=== PATIENT | female | born 1945 | race Caucasian/White ===

== ENCOUNTER 2024-02-21 11:37 | Emergency (ER) | payer MEDICARE, SELFPAY ==
--- NOTE | ~2024-02-21 | XR_ITS ---
XR chest 2V Ordering provider: Melvin Eduardo III DO History: 78 years Female with . IRREGULAR HEART BEAT . Comparison: None. FINDINGS: MEDIASTINUM: The cardiac silhouette is not enlarged. LUNGS: Nodule in the right upper lobe area measuring 1.3 cm. Further evaluation with CT is advised. N o infiltrates, effusions or pneumothorax. Prominent markings bilaterally in the lower lobes. OTHER: No free air under the diaphragm. IMPRESSION: Prominent markings in the lower lobes with no definite lobar pneumonia. early pneumonia cannot be exc luded. Nodule in the right upper lobe measuring 1.[address] evaluation is advised. Reviewed, dictated and finalized at location A. IMPRESSION: Prominent markings in the lower lobes with no definite lobar pneumonia. early p neumonia cannot be excluded. Nodule in the right upper lobe measuring 1.[address] evaluation is advised.
[2024-02-21 11:43] VITALS: BP 159/74; PULSE 100; RESP 18; TEMP 36.3; O2SAT 95
--- NOTE | 2024-02-21 11:46 | ECG_ITS ---
Test Date: 2024-02-21 11:55:11 Measurements Intervals [place] Rate: 92 P: 0 UT: 0 QRS: 3 QRSD: 95 T: 0 QT: 234 QTc: 290 Interpretive Statements ATRIAL FIBRILLATION NONSPECIFIC ST & T-WAVE ABNORMALITY ABNORMAL RHYTHM ECG No previous ECG available for comparison Electronically Signed On 02-21-2024 12:20:09 CDT by Renetta Trejo M.D.
[2024-02-21 11:50] VITALS: PULSE 107; O2SAT 90
[2024-02-21 12:00] VITALS: PULSE 94; RESP 15
--- NOTE | 2024-02-21 12:10 | PC.NURSE ---
pt denies any chest pain, discomfort, heart fluttering or racing sensation, patient states that occasionally she will have some nasal congestion with shortness of breath that she blames on allergies. patient denies any acid reflux or nausea and just complains that her energy is very low like next to zero lately pt states that throughout the last few years energy decreased gradually
[2024-02-21 12:18] LABS: Basophils Percent Auto 0.3 % (0.2-1.2); Eosinophils Absolute Auto 0.1 K/mm3 (0-0.3); Eosinophils Percent Auto 1.1 % (0-4.4); Hemoglobin 13.5 g/dL (12.0-15.0); Immature Granulocyte Absolute 0.01 K/mm3 (0.00-0.031); Immature Granulocyte Percent A 0.1 % (0-0.5); Lymphocytes Absolute Auto 2.19 K/mm3 (0.9-3.2); Lymphocytes Percent Auto 29.6 % (18.3-44.2); Mean Corpuscular HGB Conc 32.9 g/dl (32-36); Mean Corpuscular Hemoglobin 31.3 pg (26-34); Mean Corpuscular Volume 94.9 fl (80-100); Mean Platelet Volume 10.2 fl (7.4-10.4); Monocytes Absolute Auto 0.6 K/mm3 (0.1-0.6); Monocytes Percent Auto 8.1 % (2.6-8.5); Neutrophils Absolute Auto 4.5 K/mm3 (1.3-6.7); Neutrophils Percent Auto 60.8 % (45.5-73.1); Platelet Count Result 166 k/mm3 (150-375); Red Blood Count 4.32 M/mm3 (4.2-5.4); Red Cell Distribution Width 13.5 % (11.5-14.5); White Blood Count 7.4 K/mm3 (4.5-10.0)
[2024-02-21 12:25] VITALS: PULSE 97; RESP 15; O2SAT 96
--- NOTE | 2024-02-21 12:29 | ED.ARRPALP ---
HPI - Arrhythmia/Palpitations General Chief Complaint: Arrhythmia/Palpitations Stated Complaint: irregular heartbeat Time Seen by Provider: 02/21/24 11:57 History of Present Illness HPI narrative: 78-year-old female present to the emergency department for evaluation after being found to be in AFib without RVR. Patient states she has had increasing generalized weakness over the course of the last few months. patient denies any associated chest pain or current shortness breath although patient does states she does have some exertional shortness of breath worsening over the last few months. Patient was at her eye appointment today when she was complaining of heart palpitations, EKG was performed patient was found to be in AFib. Patient arrived to the emergency department by EMS. Upon arrival to the ED patient denies any complaints other than feeling fatigued. Patient is in AFib with a heart rate of 100. Patient denies any prior history of AFib denies a prior history of [place]. Related Data Allergies Allergy/AdvReac Type Severity Reaction Status Date / Time Penicillins Allergy Unknown Rash Verified 10/18/17 06:38 Review of Systems Review of Systems: All systems reviewed & are unremarkable except as noted in HPI and below Exam Narrative: APPEARANCE: Well appearing, no pain, no distress, well-nourished. HEAD: normocephalic, atraumatic. EYES: PERRLA/EOMI, conjunctivae clear. NOSE: Normal no drainage EARS:TMS clear with good light reflex. THROAT: Pharynx clear, no exudate. NECK: Supple. No adenopathy, no masses. RESPIRATORY: Airway patent, respirations nonlabored. Clear to auscultation bilaterally, no rales, rhonchi, wheezing. CARDIOVASCULAR: irregular heartbeat, rate controlled AFib ABDOMINAL: Soft, nontender, nondistended, normal bowel sounds MUSCULOSKELETAL: Moves all extremities. Strength/ROM intact, No edema, No calf tenderness. NEURO: Alert. Cranial nerves II through XII intact. grossly intact SKIN: Warm, dry. Normal Color Course Vital Signs Vital signs: Vital Signs Temperature 97.3 F L 02/21/24 11:43 Pulse Rate 100 02/21/24 11:43 Respiratory Rate 18 02/21/24 11:43 Blood Pressure 159/74 H 02/21/24 11:43 Pulse Oximetry 95 02/21/24 11:43 Oxygen Delivery Room Air 02/21/24 11:43 Temperature 97.6 F 02/21/24 13:50 Pulse Rate 98 02/21/24 13:50 Respiratory Rate 12 02/21/24 13:50 Blood Pressure 161/72 H 02/21/24 13:50 Pulse Oximetry 96 02/21/24 13:50 Oxygen Delivery Room Air 02/21/24 11:43 MDM - Arrhythmia/Palpitations MDM Narrative Medical decision making narrative: 78-year-old female present to the ED for evaluation for rate control atrial fibrillation. Patient is afebrile with no leukocytosis and a stable hemoglobin. Patient has no acute abnormalities on her CMP. patient does have an EKG showing heart rate in the 90s. Patient's heart rate is intermittently going up to 120s while at rest in bed. Case was discussed with both cardiology and hospitalist sleep the patient could be treated as outpatient. Cardiology was the patient is started on Eliquis and metoprolol 25 mg b.i.d.. They will see the patient as outpatient. patient's Eliquis script was called to the pharmacy and changed to 5 mg b.i.d.. Differential Diagnosis Differential diagnosis: Likely palpitations, anxiety, sinus tachycardia, artial fibrillation, artial flutter, ventricular premature beats, supraventricular tachycardia, ventricular tachycardia and WPW Lab Data Attestation: I reviewed the patient's lab results. 02/21/24 12:07 02/21/24 12:07 Labs: Lab Results 02/21/24 02/21/24 Range/Units 12:07 12:47 WBC 7.4 (4.5-10.0) K/mm3 RBC 4.32 (4.2-5.4) M/mm3 Hgb 13.5 (12.0-15.0) g/dL Hct 41.0 (37.0-47.0) % MCV 94.9 (80-100) fl MCH 31.3 (26-34) pg MCHC 32.9 (32-36) g/dl RDW 13.5 (11.5-14.5) % Plt Count 166 (150-375) k/mm3 MPV 10.2 (
[2024-02-21 12:31] LABS: Alanine Aminotransferase 17 U/L (6-35); Albumin Level 4.2 g/dL (3.5-5.1); Alkaline Phosphatase 84 U/L (38-126); Anion Gap 5 mmol/L (4-12); Aspartate Amino Transferase 24 U/L (14-36); Bilirubin,Total 0.8 mg/dL (0.2-1.3); Blood Urea Nitrogen 17 mg/dL (7-17); Calcium 9.4 mg/dL (8.4-10.2); Carbon Dioxide 30 mmol/L (22-30); Chloride 106 mmol/L (98-107); Estimated CRCL calculation 44 ml/min; Estimated Glomerular Filt Rate 60; Glucose 95 mg/dL (65-110); Lipase 91 U/L (23-300); Potassium 4.3 mmol/L (3.4-5.0); Sodium 141 mmol/L (137-145)
[2024-02-21 12:32] LABS: Prothrombin Time 13.8 Seconds (11.1-14.7)
[2024-02-21 12:33] LABS: Partial Thromboplastin Time 36.2 Seconds (22.3-36.8)
[2024-02-21 12:40] LABS: Troponin I < 0.012 ng/mL (0.000-0.034)
[2024-02-21 13:24] VITALS: PULSE 100
[2024-02-21] MEDS: METOPROLOL TARTRATE 25 MG TABLET PO (13:24)
[2024-02-21 13:50] VITALS: BP 161/72; PULSE 98; RESP 12; TEMP 36.4; O2SAT 96
== END 2024-02-21 13:53 | disposition home or self-care (01) ==
PROVIDERS: Emergency Medicine; Emergency Provider Emergency Medicine
DX: I48.91 Unspecified atrial fibrillation (principal)
CPT/HCPCS: 36415; 71046; 80053; 83690; 83735; 84443; 84484; 85025; 85610; 85730; 93005; 99284; A9270

== ENCOUNTER 2024-03-30 07:59 | Outpatient (CLI) | payer MEDICARE, SELFPAY ==
--- NOTE | ~2024-03-30 | CT_ITS ---
Clinical Indication: Pulmonary nodule CT Scan of the Chest with Contrast: Technique: Contiguous sections were acquired throughout the chest after intravenous administration of 75 cc of Omnipaque 350. Dose reduction technique was used on this scan by utilizing automated exposu re control and iterative reconstruction technique. The dose-length product (DLP) was 349.05 mGy-cm. Findings: There is no evidence of any significant mediastinal, hilar or axillary lymphadenopathy. There is no f illing defect in the pulmonary arterial tree to suggest pulmonary embolus. There is no evidence of ao rtic dissection or aneurysm. There is no evidence of pleural or pericardial effusion. There is a 1.1 cm mildly irregular peripheral right upper lobe pulmonary nodule (axial image 34). Mod erate emphysema present. Images through the upper abdomen reveal no abnormalities. Impression: 1.1 cm suspicious right upper lobe pulmonary nodule peripherally. Neoplasm is consideration. Recommen d tissue sampling to establish a histologic diagnosis. PET CT could also be considered. Moderate emphysema. Reviewed, dictated and finalized at location . Impression: 1.1 cm suspicious right upper lobe pulmonary nodule peripherally. Neoplasm is c onsideration. Recommend tissue sampling to establish a histologic diagnosis. PE T CT could also be considered. Moderate emphysema.
[2024-03-30 08:32] LABS: Estimated Glomerular Filt Rate 60
== END 2024-03-30 08:00 | disposition home or self-care (01) ==
LOC: ANHIMG 08:04
PROVIDERS: Visit Provider Internal Medicine Cardiovascular Disease
DX: R91.1 Solitary pulmonary nodule (principal); J43.9 Emphysema, unspecified
CPT/HCPCS: 71260; Q9967

== ENCOUNTER 2024-04-30 01:06 | Day surgery (SDC) | payer MEDICARE, SELFPAY ==
[2024-04-27 14:36] VITALS: BMI 31.5
[2024-04-30] VITALS (8 sets, daily range): BP systolic 90–117; BP diastolic 64–73; PULSE 80–90; RESP 10–18; TEMP 36.2; O2SAT 88–99
--- NOTE | 2024-04-30 08:30 | ECG_ITS ---
Test Date: 2024-04-30 09:16:24 Measurements Intervals [place] Rate: 100 P: 0 LA: 0 QRS: 27 QRSD: 94 T: 66 QT: 350 QTc: 452 Interpretive Statements ATRIAL FIBRILLATION WITH RAPID VENTRICULAR RESPONSE NONSPECIFIC ST & T-WAVE ABNORMALITY ABNORMAL ECG Electronically Signed On 04-30-2024 11:02:37 CDT by Chace Hsieh M.D.
--- NOTE | 2024-04-30 09:41 | P.HP_ITS ---
H&P: HPI History of Present Illness Date/Time: 04/30/24 09:41 Chief Complaint: AFib Narrative: 78-year-old with atrial fibrillation. No chest pain Review of Systems Constitutional: Constitutional: Denies body ache(s) ENT: Denies Normal hearing present [facility] Social History Social History Smoking status: Former smoker Tobacco type: cigarettes Second hand tobacco smoke exposure: No Alcohol intake: never Substance use: never Substance use type: does not use Living arrangements: alone Spiritual care concerns: No Meds Home Medications and Allergies Home Medications Medication Instructions Recorded Confirmed Type apixaban 5 mg (74 tabs) tablets in See Rx Instructions PO .COMPLEX 02/21/24 04/30/24 Rx a dose pack (EliquEvolva DVT-PE Treat #74 ea 30D Start) metoprolol tartrate 25 mg tablet 50 mg PO BID 04/24/24 04/30/24 History sacubitril 24 mg-valsartan 26 mg 1 tablet PO BID 04/30/24 04/30/24 History tablet (Entresto) vitamins A,C,D-wdqt-ttgbqn 2,148 2 tablet PO BID 04/30/24 04/30/24 History mcg-113 mg-45 mg-17.4 mg tablet Allergies Allergy/AdvReac Type Severity Reaction Status Date / Time Penicillins Allergy Unknown Rash Verified 04/24/24 11:50 Vital Signs Vital Signs - 24 hr 04/30/24 09:24 Temperature 36.2 C L Pulse Rate 89 Respiratory Rate 18 Blood Pressure 117/73 Pulse Oximetry 94 Oxygen Delivery Room Air Exam Narrative: Alert oriented Resp: Other: Clear Cardio: Other: Irregular irregular Assessment and Plan Assessment and plan (1) Hypertension: Code(s): I10 - Essential (primary) hypertension Status: Acute (2) Atrial fibrillation: Code(s): I48.91 - Unspecified atrial fibrillation Status: Inactive Assessment and Plan: Continue anticoagulation Plan Plan for electrical cardioversion today.
--- NOTE | 2024-04-30 09:43 | WPDMODSED ---
Moderate Sedation Note-Pt Data Patient Data Diagnosis: Atrial fibrillation Present Complaint: Atrial fibrillation Procedure to be performed/Plan: Moderate sedation Electrical cardioversion Allergies Allergy/AdvReac Type Severity Reaction Status Date / Time Penicillins Allergy Unknown Rash Verified 04/24/24 11:50 Home Medications Medication Instructions Recorded Confirmed Type apixaban 5 mg (74 tabs) tablets in See Rx Instructions PO .COMPLEX 02/21/24 04/30/24 Rx a dose pack (BlackJet DVT-PE Treat #74 ea 30D Start) metoprolol tartrate 25 mg tablet 50 mg PO BID 04/24/24 04/30/24 History sacubitril 24 mg-valsartan 26 mg 1 tablet PO BID 04/30/24 04/30/24 History tablet (Entresto) vitamins A,C,J-wqmx-gpiyze 2,148 2 tablet PO BID 04/30/24 04/30/24 History mcg-113 mg-45 mg-17.4 mg tablet Current Medications: Active Medications Sodium Chloride (Normal Saline Iv) 1,000 mls @ 30 mls/hr IV CONT .Q24H LIV Sedation/Anesthesia: No previous sedation/anesthesia problems (including family history). [facility] Social History Social History Smoking status: Former smoker Tobacco type: cigarettes Second hand tobacco smoke exposure: No Alcohol intake: never Substance use: never Substance use type: does not use Living arrangements: alone Spiritual care concerns: No Mod Sed Physical Exam Physical Exam Pre Procedural Exam: Normal: Appearance, Eyes, Ears, Nose, Neck, Throat, Airway, Lungs, Heart Size, Heart Rate, Neuro Exam, Abdomen, Extremities and Skin and Variation: Heart Rhythm (Irregular irregular) Hours since solid foods: 12 Hours since liquid intake: 12 Mallampati Classification: class II Internal Medicine - PN: Obj Da Vital Signs Vital Signs: Vital Signs - 24 hr 04/30/24 09:24 Temperature 36.2 C L Pulse Rate 89 Respiratory Rate 18 Blood Pressure 117/73 Pulse Oximetry 94 Oxygen Delivery Room Air Meds/Results Medications: Active Medications Generic Name Dose Route Start Last Admin Trade Name Freq PRN Reason Stop Dose Admin Sodium Chloride 1,000 mls @ 30 mls/hr 04/30/24 08:30 Normal Saline Iv IV CONT .Q24H LIV Labs 04/30/24 09:19 ASA Classification/Sedation ASA Classification/Sedation ASA Class: II Emergent: No Risks: Risks, benefits and alternatives explained and patient/family accepted plan for sedation. Patient re-evaluated immediately prior to sedation.
[2024-04-30 10:19] LABS: Anion Gap 10 mmol/L (4-12); Blood Urea Nitrogen 19 mg/dL (7-17); Calcium 8.8 mg/dL (8.4-10.2); Carbon Dioxide 27 mmol/L (22-30); Chloride 103 mmol/L (98-107); Estimated CRCL calculation 52 ml/min; Estimated Glomerular Filt Rate 60; Glucose 115 mg/dL (65-110); Magnesium 2.1 mg/dL (1.6-2.3); Potassium 4.1 mmol/L (3.4-5.0); Sodium 140 mmol/L (137-145)
--- NOTE | 2024-04-30 10:36 | WPDCARDVER ---
Cardioversion Cardioversion Date of procedure: 04/30/24 Procedure: 1. Moderate sedation 2. Electrical cardioversion Pre-op diagnosis: Atrial fibrillation Post-op diagnosis: Same Indications: Atrial fibrillation Description of procedure: After discussing the risks, benefits alternatives of procedure patient agreeable via verbal and written informed consent. Risks discussed include skin irritation burn, stroke, adverse reaction anesthesia, , bleeding, pain, infection. After time-out was taken and after established continuous monitoring engineer, pulse oxygenation serial blood pressure assessment, procedure started. Procedure start time 10:29 a.m. Procedure stop time 10:31 a.m. Complications: None Blood loss: None Medications were administered patient was monitored by Kerri Grant RN Sedation: Total of 2 mg Versed 50 mcg of fentanyl were given for moderate sedation Findings: After verifying atrial fibrillation, 150 joules of synchronized biphasic energy were used. No sinus beats were seen. Another attempt was made with 200 joules of biphasic synchronized energy but again without any normal sinus beats. No further attempts were made. Conclusion: 1. Unsuccessful electrical cardioversion using 150 and 200 joules of synchronized biphasic energy 2. Moderate sedation Plan will be for rate control
== END 2024-04-30 11:45 | disposition home or self-care (01) ==
PROVIDERS: PCP Internal Medicine Cardiovascular Disease; Visit Provider Internal Medicine Cardiovascular Disease
PROC: 5A2204Z Restoration of Cardiac Rhythm, Single (ICD-10-PCS; principal; 2024-04-30 10:00)
DX: I48.19 Other persistent atrial fibrillation (principal); I11.9 Hypertensive heart disease without heart failure; E78.5 Hyperlipidemia, unspecified; Z79.01 Long term (current) use of anticoagulants; Z87.891 Personal history of nicotine dependence; Z80.9 Family history of malignant neoplasm, unspecified; Z82.49 Family history of ischemic heart disease and other diseases of the circulatory system
CPT/HCPCS: 36415; 80048; 83735; 92960; J2250; J3010; J7030

== ENCOUNTER 2024-05-04 12:27 | Outpatient (CLI) | payer MEDICARE, SELFPAY ==
--- NOTE | 2024-05-04 16:17 | WPDPFTINT ---
PFT Procedure Performed PFT Procedure Performed Spirometry with Pre/Post Bronchodilator Plethysmography (Lung Vol) Diffusing Cap (DLCO) Flow Vol Loop PFT Interpretation This is a pulmonary function test with pre and post-bronchodilator spirometry, plethysmography and diffusing capacity. The test was performed and results interpreted in accordance with the 2019 and 2005 ATS/ERS Task Force guidelines respectively using the Global Lung Function Initiative-2012 reference equations. Patient demonstrated good effort and cooperation. Reproducibility criteria were met. The quality of the pre bronchodilator spirometry maneuver was Grade A and post bronchodilator spirometry maneuver was Grade A. Findings: Spirometry: There is decreased maximal expiratory airflow at all lung volumes with concave expiratory flow tracing. The contour the inspiratory flow tracing is normal. The pre bronchodilator FVC is 1.88 L, 64% predicted. The pre bronchodilator FEV1 is 0.78 L, 35% predicted. The pre bronchodilator FEV1: FVC ratio is 41%. The post bronchodilator FVC is 2.00 L, representing a 7% increase. The post bronchodilator FEV1 is 0.84 L, representing an 8% increase. The post bronchodilator FEV1: FVC ratio is 42%. Plethysmography: The total lung capacity is 5.32 L, 94% predicted. The functional residual capacity is 4.12 L, 125% predicted. The residual volume is 3.44 L, 132% predicted. The residual volume: Total lung capacity ratio 65%. Diffusing capacity: The diffusing capacity unadjusted for hemoglobin and carboxyhemoglobin is 8.1, 39% predicted. The diffusing capacity adjusted for alveolar volume is 2.75, 70% predicted. Impression: There is a severe obstructive abnormality. There is no significant improvement after inhaling a single dose of albuterol. The increase in residual volume to total lung volume ratio is consistent with hyperinflation from an obstructive abnormality. The diffusing capacity unadjusted for hemoglobin and carboxyhemoglobin is severely decreased and normalizes when adjusted for alveolar volume. There are no prior studies for comparison
--- NOTE | 2024-05-04 16:20 | WPDSIXMINUTE ---
Six Minute Walk Procedure Procedure Performed Pulmonary Stress Test (6 min walk) Six Minute Walk Six Minute Walk: This is a 6 minute walk test. The test was performed and interpreted in accordance with the 2014 ERS/ATS task force guidelines. Of note, the patient used to wheeled walker for stability. Findings: The patient's resting room air oxygen saturation measured by pulse oximetry was 96% and heart rate was 116 bpm. Patient ambulated for 305 meters and oxygen saturation remained 90 to 92%. Heart rate at 5 minute as was 134 and at the end of the study was 90 bpm. The patient did not qualify for supplemental oxygen at rest or with ambulation. There are no prior studies for comparison.
== END 2024-05-04 12:28 | disposition home or self-care (01) ==
LOC: ANHPFT 12:28
PROVIDERS: PCP Nurse Practitioner Family; Referring Provider Internal Medicine Cardiovascular Disease; Visit Provider Internal Medicine Critical Care Medicine
DX: R06.09 Other forms of dyspnea (principal); R94.2 Abnormal results of pulmonary function studies
CPT/HCPCS: 94060; 94618; 94726; 94729

== ENCOUNTER 2024-05-08 09:08 | Outpatient (CLI) | payer MEDICARE, SELFPAY ==
--- NOTE | ~2024-05-08 | PE_ITS ---
EXAMINATION: PET skull to mid thigh DATE: 05/08/2024 11:10 INDICATION: Solitary pulmonary nodule. TECHNIQUE: Blood glucose level was 101 mg/dL. 9.199 mCi of 18-fluorodeoxyglucose (18-FDG) was adminis tered i.v. Low dose computed tomography (CT) images were acquired from the base of the brain to the p roximal thighs for attenuation correction and anatomic localization. Automated exposure control was e mployed. Dose-length product (DLP) was 1181 mGy-cm. Positron emission tomography (PET) images were ac quired in the same distribution. COMPARISON: Chest CT 03/30/2024 FINDINGS: Head/neck: There are likely changes of ocular lens replacement surgeries. There are no pathologically enlarged lymph nodes. Chest: There is mild scarring at the lung apices. There is moderate emphysema. There is a 10 mm nodul e in right upper lobe with maximum SUV of 13. The lungs demonstrate mild atelectasis. 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 No pleural effusion. The heart size is normal. There are coronary artery calcifications. No pericardial effusion. Abdomen/pelvis/proximal thighs: The liver, spleen, gallbladder, pancreas, adrenal glands, and kidneys are normal. There is diverticulosis of the colon without evidence of diverticulitis. There are no di lated loops of bowel. The appendix is normal. There is calcified atherosclerosis of the aorta and man y of the other arteries. There are no pathologically enlarged lymph nodes. There is no free intraperi toneal fluid. In the lateral right thigh, there is a 4.0 cm subcutaneous mass without increased activ ity. There is no osseous malignancy. IMPRESSION: 1. 10 mm nodule in right lung upper lobe with increased activity, consistent with primary bronchogeni c carcinoma. CT-guided biopsy is recommended. 2. Moderate emphysema. 3. 4.0 cm subcutaneous mass in lateral right thigh without increased activity, likely a benign mass s uch as a sebaceous cyst. Consider ultrasound-guided core needle biopsy. Reviewed, dictated and finalized at location A. IMPRESSION: 1. 10 mm nodule in right lung upper lobe with increased activity, consistent wi th primary bronchogenic carcinoma. CT-guided biopsy is recommended. 2. Moderate emphysema. 3. 4.0 cm subcutaneous mass in lateral right thigh without increased activity, likely a benign mass such as a sebaceous cyst. Consider ultrasound-guided core needle biopsy.
[2024-05-08 09:37] LABS: Glucose Point of Care 101 mg/dl (65-105)
== END 2024-05-08 09:09 | disposition home or self-care (01) ==
PROVIDERS: PCP Nurse Practitioner Family; Visit Provider Internal Medicine Critical Care Medicine
DX: R91.1 Solitary pulmonary nodule (principal); J43.9 Emphysema, unspecified
CPT/HCPCS: 78815; A9552

== ENCOUNTER 2024-05-28 05:38 | Outpatient (CLI) | payer MEDICARE, SELFPAY ==
[2024-05-24 12:14] VITALS: BMI 30.4
--- NOTE | 2024-05-24 12:15 | PC.NURSE ---
Pre Radiology instructions Report to the outpatient [facility] on date __05/28/24___ at time ___9:00AM____ for procedure Time: _11:00AM___ YOU MAY BE MONITORED AT HOSPITAL FOR UP TO 4 HOURS AFTER YOUR PROCEDURE. A visitor will be allowed to accompany the patient into the hospital. You and your visitor will be asked to self-screen and do not enter if you have any COVID symptoms. A mask is OPTIONAL within the hospital. Patients are to have no food or drink 6 hours prior to procedure time Driving will be restricted after the procedure, you must have a person to drive you home. Labs will be drawn in preop area and once reviewed, you will be taken to radiology area for procedure. When the procedure is completed, you will be taken to outpatient where you will be monitored for several hours. You may have one visitor in this area. Other than holding anti-coagulants, patient may take other medication(s) as scheduled. Prior to your appointment date patients are instructed to hold anti-coagulants after discussing with ordering provider to stop. If unable to discontinue anti-coagulants please notify radiologist. ? No aspirin or warfarin (Coumadin) for 7 days prior to the procedure. ? No clopidogrel (Plavix), ticagrelor (Brilinta), prasugrel (Effient) or dabigatran (Pradaxa) for 5 days prior to the procedure. ? No rivaroxaban (Xarelto), apixaban (Eliquis), dipyridamole (Aggrenox or Persantine) or cilostazol (Pletal) for 2 days prior to the procedure. Medications to discontinue per physician: ___ELIQUIS Date to take last dose: ____05/25/24 Please leave all valuables, including medications, at home the day of procedure. The hospital will not accept responsibility for valuables. Wear comfortable, loose fitting clothing.? Follow any additional instructions given to you from ordering provider. Telephone instructions given to PATIENT and asked if any additional questions and then verbalized understanding. Patient advised to call scheduling provider office or registration scheduling [phone] if any additional questions.
[2024-05-28] VITALS (11 sets, daily range): BP systolic 74–109; BP diastolic 37–73; PULSE 83–97; RESP 16–20; TEMP 36.1; O2SAT 93–98; BMI 31.3
--- NOTE | ~2024-05-28 | XR_ITS ---
EXAMINATION: XR chest 1V portable DATE: 05/28/2024 13:03 INDICATION: Right lung nodule status post percutaneous biopsy. TECHNIQUE: A single frontal view of the chest was obtained on 2 radiographs. COMPARISON: Chest single view at 11:28 AM FINDINGS: There are airspace opacities in right upper lobe, consistent with hemorrhage. There is a sm all right pneumothorax. No pleural effusion. The heart size is normal. IMPRESSION: 1. Stable hemorrhage in right lung upper lobe. 2. Stable small right pneumothorax. Reviewed, dictated and finalized at location A.
--- NOTE | ~2024-05-28 | XR_ITS ---
XR chest 1V Ordering provider: Hieu Werner MD History: 78 years Female with . SP RT LUNG BIOPSY . Comparison: February 21, 2024 FINDINGS: MEDIASTINUM: The cardiac silhouette is not enlarged. LUNGS: Ossification the right upper lobe is seen suggestive of pneumonia versus hemorrhage. Mild Righ t apical pneumothorax is highly suggestive. OTHER: No free air under the diaphragm. IMPRESSION: Hemorrhagic changes in the right upper lobe. Differential includes pneumonia. Clinical correlation ad vised. Small Right apical pneumothorax. Follow-up advised. Reviewed, dictated and finalized at location A. IMPRESSION: Hemorrhagic changes in the right upper lobe. Differential includes pneumonia. C linical correlation advised. Small Right apical pneumothorax. Follow-up advised.
--- NOTE | ~2024-05-28 | XR_ITS ---
EXAMINATION: XR chest 1V portable DATE: 05/28/2024 15:04 INDICATION: Right lung nodule status post percutaneous biopsy. TECHNIQUE: A single frontal view of the chest was obtained. COMPARISON: Chest single view at 12:49 PM FINDINGS: There are airspace opacities in right upper lobe, consistent with hemorrhage. No pleural ef fusion. There is a small right pneumothorax. The heart size is normal. IMPRESSION: 1. Stable hemorrhage in right lung upper lobe. 2. Stable small right pneumothorax. Reviewed, dictated and finalized at location A.
--- NOTE | ~2024-05-28 | CT_ITS ---
EXAMINATION: CT biopsy lung w/imaging DATE: 05/28/2024 11:41 INDICATION: Right lung upper lobe nodule. TECHNIQUE: The procedure including the risks, benefits, and alternatives and possibility of chest tub e placement were discussed with the patient. Risks discussed included infection, hemorrhage, approxim ately 1/3 risk of pneumothorax, approximately 1/10 risk of pneumothorax severe enough to warrant ches t tube placement, and rarely . The patient understood the risks and agreed to proceed. The patie nt was placed supine. The skin overlying the right chest was prepped and draped in sterile fashion. Anesthetic was administered with 1% lidocaine subcutaneously. A 19 gauge outer needle was advanced under CT guidance to the lesion of interest. A 20 gauge core biopsy needle was then used to obtain 3 core biopsy specimens. The needle was removed and the entry site was cleaned and dressed. The mA was adjusted according to patient size. Iterative reconstruction technique was employed. The dose-length product was 251.12 mGy-cm. There were no immediate complications. FINDINGS: CT images demonstrate the outer needle tip in a 10 mm nodule in right lung upper lobe. IMPRESSION: 1. CT-guided core needle biopsy of a 10 mm nodule in right lung upper lobe. Reviewed, dictated and finalized at location A.
[2024-05-28 09:57] LABS: Mean Platelet Volume 10.3 fl (7.4-10.4); Platelet Count Result 159 k/mm3 (150-375)
[2024-05-28 10:06] LABS: Prothrombin Time 13.7 Seconds (11.1-14.7)
== END 2024-05-28 15:27 | disposition home or self-care (01) ==
PROVIDERS: Radiology Diagnostic Radiology; PCP Nurse Practitioner Family; Referring Provider Internal Medicine Critical Care Medicine; Visit Provider Radiology Diagnostic Radiology
PROC: BB24ZZZ Computerized Tomography (CT Scan) of Bilateral Lungs (ICD-10-PCS; CPT 32408; principal; 2024-05-28 11:00)
DX: R91.1 Solitary pulmonary nodule (principal); J95.811 Postprocedural pneumothorax
CPT/HCPCS: 32408; 36415; 71045; 85049; 85610; 88305

== ENCOUNTER 2024-12-05 08:10 | Outpatient (CLI) | payer MEDICARE, SELFPAY ==
--- NOTE | ~2024-12-05 | CT_ITS ---
EXAMINATION:CT diagnostic chest wo con DATE: 12/05/2024 08:40 INDICATION: Solitary pulmonary nodule. TECHNIQUE: Computed tomography (CT) of the chest was performed without intravenous contrast. Automate d exposure control and iterative reconstruction technique were employed. The dose-length product (DLP ) was 155.80 mGy-cm. COMPARISON: Chest CT 03/30/2024 FINDINGS: There is mild scarring at the lung apices. There is moderate emphysema. There is a 10 mm no dule in right upper lobe. There is mild atelectasis bilaterally. No pleural effusion. Cardiomegaly is noted. There are coronary artery calcifications. No pericardial effusion. There is mild thoracic spo ndylosis. IMPRESSION: 1. 10 mm pulmonary nodule, stable from 03/30/2024 status post benign biopsy on 05/28/2024. Consider non contrast low-dose chest CT in one year. 2. Moderate emphysema. Reviewed, dictated and finalized at location A. IMPRESSION: 1. 10 mm pulmonary nodule, stable from 03/30/2024 status post benign biopsy on . Consider noncontrast low-dose chest CT in one year. 2. Moderate emphysema.
--- OUTSIDE RECORDS SUMMARY | 2024-12-05 08:27 | XMS_ITS | Referral Summary ---
Author Organization [facility] [address] [place] [address] Address [address] [place] [address] Care Team Providers Care Narcotics And Vice Detective Name Role Phone Zeny Benitez NP Primary Care Provider [phone] Chace Hsieh MD Unavailable [phone] Encounters Date Type Department Care Team Description 12/03/2024 Results Follow-Up [facility] Primary Care at [address] [address] Zeny Benitez NP 11/28/2024 3:10 PM CDT - 11/28/2024 11:59 PM CDT Hospital Encounter [address] [address] Stage 3b chronic kidney disease (HCC); Other general symptoms and signs Discharge Disposition: Discharge to home or self care 11/28/2024 3:00 PM CDT Lab [facility] Outpatient Lab at [address] [address] 11/21/2024 Telephone [facility] Cardiology [address] [place] [address] La Dill NP 11/16/2024 Results Follow-Up [facility] Primary Care at [address] [address] Zeny Benitez NP Stage 3b chronic kidney disease (HCC) (Primary Dx); Other general symptoms and signs 11/15/2024 2:40 PM BUSINESS EXECUTIVE - 11/15/2024 11:59 PM BUSINESS EXECUTIVE Hospital Encounter [address] [address] Essential hypertension; Prediabetes; Vitamin D deficiency; Hyperlipidemia LDL goal <70 Discharge Disposition: Discharge to home or self care 11/15/2024 2:45 PM BUSINESS EXECUTIVE Lab [facility] Outpatient Lab at [address] [address] Encounter for routine adult physical exam with abnormal findings (Primary Dx) 11/15/2024 2:00 PM BUSINESS EXECUTIVE Office Visit [facility] Primary Care at [address] [address] Zeny Benitez NP Encounter for routine adult physical exam with abnormal findings (Primary Dx); Essential hypertension; Hyperlipidemia LDL goal <70; Chronic a-fib (HCC); Centrilobular emphysema (HCC); Vitamin D deficiency; Prediabetes; Class 1 obesity due to excess calories with serious comorbidity and body mass index (BMI) of 34.0 to 34.9 in adult; Pulmonary nodule 1 cm or greater in diameter 11/08/2024 1:30 PM BUSINESS EXECUTIVE Office Visit [facility] Cardiology [address] [place] [address] La Dill NP Persistent atrial fibrillation (HCC) (Primary Dx); Chronic anticoagulation; Mild left ventricular systolic dysfunction; Dyslipidemia; Class 1 obesity due to excess calories with serious comorbidity and body mass index (BMI) of 34.0 to 34.9 in adult from Last 3 Months Allergies Active Allergy Reactions Criticality Noted Date Comments Penicillins Rash Medium 03/22/2024 Medications vit I-S-fqywcb-zinc- lutein 226-90-0.8-5 mg capsule Take by mouth Active Eliquis 5 mg tablet Take 1 tablet (5 mg total) by mouth 2 (two) times a day 180 tablet 3 4 Active sacubitriL-valsa rtan (Entresto) 24-26 mg tabletIndication s:chronic heart failure Take 1 tablet by mouth 2 (two) times a day 180 tablet 3 4 Active fluticasone propionate (FLONASE) 50 mcg/actuation nasal spray Administer 2 sprays into each nostril daily 3 each 4 4 Active atorvastatin (LIPITOR) 20 mg tablet Take 1 tablet (20 mg total) by mouth daily 90 tablet 4 4 05/11/20 25 Active Trelegy Ellipta 100-62.5-25 mcg inhaler 4 Active metoprolol XL (TOPROL-XL) 50 mg extended release tabletIndication s:Mild left ventricular systolic dysfunction Take 1 tablet (50 mg total) by mouth daily 90 tablet 3 4 08/16/20 25 Active ergocalciferol (VITAMIN D) 50,000 unit capsule TAKE 1 CAPSULE BY MOUTH 1 TIME A WEEK 12 capsule 1 5 Active cholecalciferol (Vitamin D3) 2000 unit tablet Take by mouth daily Active vit A/vit C/vit E/zinc/copper (PRESERVISION AREDS ORAL) Take by mouth Acti ve Active Problems Problem Noted Date Diagnosed Date Class 1 obesity due to exces s calories with serious comorbidity and body mass index (BMI) of 34.0 to 34.9 in adult 11/15/2024 Assessment & Plan (11/15/2024 2:33 PM BUSINESS EXECUTIVE): BMI Follow-up includes: nutrition counseling. Encounter for routine adult physical exam with abnormal findings 05/10/2024 Assessment & Plan (11/15/2024 2:49 PM BUSINESS EXECUTIVE): -Recommended: Healthy diet. Avoiding junk food/fast food. -30 minutes of exercise most days of the week. Increase to 45 minutes for weight loss. Health Maintenance reviewed - has mammogram and bone density scheduled. -Influenza vaccine every year Recommend: - Topic Date Due DTaP/Tdap/Td Vaccine (1 - Tdap) Never done -F/u in 1 year for Annual PE or sooner if needed Assessment & Plan (05/10/2024 2:33 PM CDT): I have reviewed patient's history, family history, current med list and plan of care. Rx refills given. Discussed relevant follow up testing and specialty follow-up needed. Referrals placed as needed. We discussed mammogram, Dexa, and other health maintenance screenings. She is agreeable to a mammogram and DEXA scan today and this was ordered at [facility] Hyperlipidemia LDL goal <70 03/22/2024 Assessment & Plan (11/15/2024 2:49 PM BUSINESS EXECUTIVE): Doing well on atorvastatin. Repeat lipid panel today Assessment & Plan (05/10/2024 2:29 PM CDT): Will check a lipid panel today. Likely start medication given her new cardiac history. She tells me at 1 point she was on Zetia. She is not currently on medication. Essential hypertension 03/22/2024 Assessment & Plan (05/10/2024 2:30 PM CDT): Patient is now on metoprolol and Entresto for history of heart failure and AFib. Her blood pressure is within normal limits today. Will continue to monitor. She also is under the care of cardiology Centrilobular emphysema 03/22/2024 Assessment & Plan (11/15/2024 2:50 PM BUSINESS EXECUTIVE): Continues on Trelegy. Managed by pulmonology Assessment & Plan (05/10/2024 2:31 PM CDT): This is still currently being worked up. She has not started any treatment at this time. She has follow up with pulmonology in July. She also just had a PET-CT but she has not have the results yet. Chronic anticoagulation 03/22/2024 Former smoker 03/22/2024 Chronic a-fib 03/22/2024 Assessment & Plan (05/10/2024 2:31 PM CDT): Managed by cardiology. On Eliquis 5 mg b.i.d.. She is asymptomatic at this time. Pulmonary nodule 1 cm or greater in diameter 07/2024 Assessment & Plan (11/15/2024 2:51 PM BUSINESS EXECUTIVE): Negative biopsy. Being followed by pulmonology Immunizations Immunization Administration Dates Next Due Influenza, Quadrivalent, Hig h Dose, Preservative Free, Intrr 08/19/2022 Influenza, Trivalent, Cell Culture-based MDCK, Preservative Free, Antibiotic Free, Intramuscular 11/09/2024 Influenza, Unspecified 05/10/2024(Deferr ed: Patient Refused),09/12/2023(Deferred: Patient Refused) Pneumococcal Conjugate Pcv20 05/10/2024 Social History Tobacco Use Types Packs/Day Years Used Date Smoking Tobacco: Former Cigarettes 0.5 40.7 S tarted: 03/22/1984 Passive Smoke Exposure: Past Smokeless Tobacco: Never Tobacco Cessation:Counseling Given: Not Answered PHQ-2 Answer Date Recorded PHQ-2 Total Score (If total score is 3 or more points, staff should administer the PHQ-9) 0 05/10/2024 Comments Unknown Sex and Gender Information Value Date Recorded Sex Assigned at Not on file Legal Sex Female 5:28 PM BUSINESS EXECUTIVE Gender Identity Not on file Sexual Orientation Not on file Last Filed Vital Signs Vital Sign Reading Time Taken Comments Blood Pressure 134/86 11/15/2024 2:09 PM BUSINESS EXECUTIVE Pulse 92 11/15/2024 2:09 PM BUSINESS EXECUTIVE Temperature 36.7 C (98.1 F) 11/15/2024 2:09 PM BUSINESS EXECUTIVE Respiratory Rate 18 11/15/2024 2:09 PM BUSINESS EXECUTIVE Oxygen Saturation 97% 11/15/2024 2:09 PM BUSINESS EXECUTIVE Inhaled Oxygen Concentration - - Weight 102.4 kg (225 lb 12.8 oz) 11/15/2024 2:09 PM BUSINESS EXECUTIVE Height 172.7 cm (5' 8 ) 11/15/2024 2:09 PM BUSINESS EXECUTIVE Body Mass Index 34.33 11/15/2024 2:09 PM BUSINESS EXECUTIVE Plan of Treatment Not on file Procedures Procedure Name Priority Date/Time Associated Diagnosis Comments URINE CULTURE Routine 11/28/2024 3:10 PM CDT Stage 3b chronic kidney disease (HCC) Other general symptoms and signs EGFR Routine 11/15/2024 2:40 PM BUSINESS EXECUTIVE Hyperlipidemia LDL goal <70 DIFFERENTIAL AUTO Routine 11/15/2024 2:4 0 PM BUSINESS EXECUTIVE Essential hypertension LIPID PANEL Routine 11/15/2024 2:40 PM BUSINESS EXECUTIVE Hyperlipidemia LDL goal <70 COMPREHENSIVE METABOLIC PANEL Routine 11/15/2024 2:40 PM BUSINESS EXECUTIVE Hyperlipidemia LDL goal <70 VITAMIN D 25 HYDROXY Routine 11/15/2024 2:40 PM BUSINESS EXECUTIVE Vitamin D deficiency HEMOGLOBIN A1C Routine 11/15/2024 2:40 PM BUSINESS EXECUTIVE Prediabetes CBC WITH AUTO DIFFERENTIAL Routine 11/15/2024 2:40 PM BUSINESS EXECUTIVE Essential hypertension from Last 3 Months Results * Urine culture Urine, bladder (11/28/2024 3:10 PM CDT) Report Final Report: Less than 100,000 colonies/mL (clinically insignificant growth based on current clinical standards) Comment:Testing performed by : [facility], [address] [place] [address]., [id number] Organism (CLINICALLY INSIGNIFICANT GROWTH [facility] Urine, bladder 11/28/2024 3: 10 PM CDT 11/28/2024 9:57 PM CDT Narrative STEVEN - 11/30/2024 7:28 AM CDT Testing performed by [facility] ([phone]) Zeny Benitez NP LAB MICROBIOLOGY - GENERAL OR DERABLES Final Result [facility] [id number] Department of Laboratories [place], [place] [id number] * (ABNORMAL) eGFR (11/15/2024 2:40 PM BUSINESS EXECUTIVE) eGFR 47(L) >=60 mL/min/1. 73 m2 Comment: Interpretive Data Reference Interval Normal >/= 90 mL/min/1.73m2 Mildly decreased* 60 - 89 mL/min/1.73m2 Mildly to moderately decreased 45 - 59 mL/min/1.73m2 Moderately to severely decreased 30 - 44 mL/min/1.73m2 Severely decreased 15 - 29 mL/min/1.73m2 Kidney Failure < 15 mL/min/1.73m2 *Relative to young adult level Estimated glomerular filtration rate is determined by the 2020 CKD-EPI equation recommended by the National Kidney Foundation (A Unifying Approach to GFR Estimation: Recommendations of the NKF-ASK Task Force on Reassessing the Inclusion of Race in Diagnosing Kidney Disease, JASN 202). The CKD-EPI equation should not be used for patients with unstable renal function and has not been validated in children and those over 70. Current interpretive data was last reviewed 2021. Blood 11/15/2024 2:40 PM BUSINESS EXECUTIVE 11/15/2024 10:51 PM BUSINESS EXECUTIVE us Zeny Benitez NP LAB BLOOD ORDERABLES Final Re sult [facility] [address] Department [place] [address] * Differential, auto (11/15/2024 2:40 PM BUSINESS EXECUTIVE) Neutrophil abs 3.9 1.5 - 6.5 K/cumm Imm gran abs 0.0 0.0 - 0.1 K/cumm [facility] Lymphocyte abs 2.1 0.8 - 3.3 K/cumm [facility] Monocyte abs 0.7 0.2 - 0.8 K/cumm [facility] Eosinophil abs 0.2 0.0 - 0.5 K/cumm [facility] Basophil abs 0.0 0.0 - 0.1 K/cumm [facility] Neutrophil pct 56.6 % [facility] Comment: Interpretive Data Percent cell count reference ranges are not reported, since discordance with absolute values may lead to misinterpretation of CBC data. Current Interpretive Data was last revised on 2017. Imm gran pct 0.3 % [facility] Comment: Interpretive Data Percent cell count reference ranges are not reported, since discordance with absolute values may lead to misinterpretation of CBC data. Current Interpretive Data was last revised on 2017. Lymphocyte pct 30.5 % [facility] Comment: Interpretive Data Percent cell count reference ranges are not reported, since discordance with absolute values may lead to misinterpretation of CBC data. Current Interpretive Data was last revised on 2017. Monocyte pct 9.8 % [facility] Comment: Interpretive Data Percent cell count reference ranges are not reported, since discordance with absolute values may lead to misinterpretation of CBC data. Current Interpretive Data was last revised on 2017. Eosinophil pct 2.5 % [facility] Comment: Interpretive Data Percent cell count reference ranges are not reported, since discordance with absolute values may lead to misinterpretation of CBC data. Current Interpretive Data was last revised on 2017. Basophil pct 0.3 % [facility] Comment: Interpretive Data Percent cell count reference ranges are not reported, since discordance with absolute values may lead to misinterpretation of CBC data. Current Interpretive Data was last revised on 2017. Blood 11/15/2024 2:40 PM BUSINESS EXECUTIVE 11/15/2024 10:48 PM BUSINESS EXECUTIVE Zeny Benitez NP LAB BLOOD ORDERABLES Final Re sult [facility] [address] Department [place] [address] * (ABNORMAL) CBC with auto differential (11/15/2024 2:40 PM BUSINESS EXECUTIVE) WBC 6.8 3.8 - 9.9 K/cumm Hgb 13.1 11.9 - 15.5 g/dL [facility] Hct 42.5 35.6 - 45.5 % [facility] Plt 189 150 - 400 K/cumm [facility] MPV 10.9 9.1 - 12.3 fL [facility] RBC 4.17 3.90 - 5.20 M/cumm [facility] MCV 101.9(H) 81.3 - 96.4 fL [facility] MCH 31.4 27.1 - 33.3 pg [facility] MCHC 30.8(L) 32.3 - 35.7 g/dL [facility] RDW CV 14.0 11.1 - 14.9 % [facility] RDW SD 52.5(H) 35.7 - 48.1 fL [facility] NRBC abs 0.00 0.00 - 0.01 K/cumm [facility] Blood 11/15/2024 2:40 PM BUSINESS EXECUTIVE 11/15/2024 10:48 PM BUSINESS EXECUTIVE Zeny Benitez NP LAB BLOOD ORDERABLES Final Re sult Performing Organization Address [facility] de Phone Number STEVEN [phone] [place] [address] * Vitamin D 25 hydroxy (11/15/2024 2:40 PM BUSINESS EXECUTIVE) [facility] Vitamin D 25-OH 63 30 - 80 ng/mL Blood 11/15/2024 2:40 PM BUSINESS EXECUTIVE 11/15/2024 10:48 PM BUSINESS EXECUTIVE Zeny Benitez NP LAB BLOOD ORDERABLES Final Re sult Performing Organization Address [facility] de Phone Number [facility] [id number] [facility] [address] [place], [place] [id number] * Hemoglobin A1c (11/15/2024 2:40 PM BUSINESS EXECUTIVE) [facility] Hgb A1C 5.3 4.0 - 5.6 % Estimated Average Glucose 105 mg/dL STEVEN Comment: The ADA recommends reporting an estimated Average Glucose (eAG) with all Hemoglobin A1c results using the equation derived from a study of 507 normal and diabetic adults. Minority populations were underrepresented and children were not included. (Diabetes Care 31:6025-7195, 2008). The eAG is not equivalent to a fasting glucose. Blood 11/15/2024 2:40 PM BUSINESS EXECUTIVE 11/15/2024 10:48 PM BUSINESS EXECUTIVE Zeny Benitez NP LAB BLOOD ORDERABLES Final Re sult Performing Organization Address [facility] de Phone Number STEPHJESSICA [phone] [address] [facility] [place] [address] * Lipid panel (11/15/2024 2:40 PM BUSINESS EXECUTIVE) [facility] Cholesterol 151 30 - 199 mg/dL Comment: Interpretive Data Ages < or = 19 years Acceptable: <170 mg/dL Borderline high: 170-199 mg/dL High: >or= 200 mg/dL Ages > or = 20 years Desirable: <200 mg/dL Borderline high: 200-239 mg/dL High: >or= 240 mg/dL Literature References: 1. Expert Panel on Integrated Guidelines for Cardiovascular Health and Risk Reduction in Children and Adolescents. Pediatrics 2011;128:S213 2. NCEP Expert Panel. Circulation 2004;110:227 Current Interpretive Data was last revised on 2018. Triglycerides 149 <=149 mg/dL STEVEN Comment: Interpretive Data Ages < or = 9 years Acceptable: <75 mg/dL Borderline high: 75-99 mg/dL High: >or= 100 mg/dL Ages 10 to 20 years Acceptable: <90 mg/dL Borderline high: 90-129 mg/dL High: >or= 130 mg/dL Ages > or = 20 years Desirable: <150 mg/dL Borderline high: 150-199 mg/dL High: 200-499 mg/dL Very high: >or= 499 mg/dL Literature References: 1. Expert Panel on Integrated Guidelines for Cardiovascular Health and Risk Reduction in Children and Adolescents. Pediatrics 2011;128:S213 2. NCEP Expert Panel. Circulation 2004;110:227 Current Interpretive Data was last revised on 2018. HDL 52 >=40 mg/dL STEVEN Comment: Interpretive Data Ages < or = 19 years Acceptable: >45 mg/dL Borderline low: 40-45 mg/dL Low: <40 mg/dL Ages > or = 20 years Desirable: >or= 60 mg/dL Low: <40 mg/dL Literature References: 1. Expert Panel on Integrated Guidelines for Cardiovascular Health and Risk Reduction in Children and Adolescents. Pediatrics 2011;128:S213 2. NCEP Expert Panel. Circulation 2003;110:227 Current Interpretive Data was last revised on 2018. LDL, calculated 73 <=129 mg/dL STEVEN Comment: Interpretive Data Ages < or = 19 years Acceptable: <110 mg/dL Borderline high: 110-129 mg/dL High: >or= 130 mg/dL Ages > or = 20 years Optimal: <100 mg/dL Near optimal: 100-129 mg/dL Borderline high: 130-159 mg/dL High: >160 mg/dL Calculated using the Hansen LDL-C estimating equation. This equation was implemented on 2024. Prior to this date LDL-C was estimated using the Friedewald equation. Literature References: 1. Expert Panel on Integrated Guidelines for Cardiovascular Health and Risk Reduction in Children and Adolescents. Pediatrics 2011;128:S213 2. NCEP Expert Panel. Circulation 2004;110:227 3. Tyrone M et al. LATONIA Cardiol. 2019January 10;5(5):540-548. doi: 10.1001/jamacardio.2020.0013 Current Interpretive Data was last revised on 2024. Non-HDL Cholesterol 99 mg/dL [facility] Comment: Interpretive Data Ages < or = 19 years Acceptable: <120 mg/dL Borderline high: 120-144 mg/dL High: >145 mg/dL Ages > or = 20 years When triglycerides are >200 mg/dL, Non-HDL cholesterol is a secondary target of therapy with treatment goals that are 30 mg/dL greater than the LDL cholesterol target. Literature References: 1. Expert Panel on Integrated Guidelines for Cardiovascular Health and Risk Reduction in Children and Adolescents. Pediatrics 2011;128:S213 2. NCEP Expert Panel. Circulation 2004;110:227 Current Interpretive Data was last revised on 2018. Chol/HDL ratio 3 [facility] Blood 11/15/2024 2:40 PM BUSINESS EXECUTIVE 11/15/2024 10:48 PM BUSINESS EXECUTIVE Zeny Benitez NP LAB BLOOD ORDERABLES Final Re sult [facility] [address] Department [place] [address] * (ABNORMAL) Comprehensive metabolic panel (11/15/2024 2:40 PM BUSINESS EXECUTIVE) Sodium 144 135 - 145 mmol/L Potassium, pl 4.4 3.3 - 4.9 mmol/L [facility] Chloride 103 97 - 110 mmol/L [facility] CO2 27 22 - 32 mmol/L [facility] Anion gap 14 2 - 15 mmol/L [facility] BUN 15 6 - 25 mg/dL [facility] Creatinine 1.16(H) 0.60 - 1.10 mg/dL [facility] Glucose 100 70 - 199 mg/dL [facility] Comment: Interpretive Data Fasting glucose >/= 126 mg/dl is diagnostic for diabetes. Fasting is defined as no caloric intake for at least 8 hours. Fasting glucose between 100 mg/dl to 125 mg/dl is diagnostic of prediabetes. In a patient with classic symptoms of hyperglycemia or hyperglycemic crisis, a random glucose >/= 200 mg/dl is diagnostic for diabetes. In the absence of unequivocal hyperglycemia, results should be confirmed by repeat testing. The classification and Diagnosis of Diabetes Diabetes Care 2021; 46: S19-S40. Current interpretive data was last revised 2022. Calcium 9.6 8.5 - 10.3 mg/dL [facility] Bilirubin, total 0.5 0.1 - 1.2 mg/dL [facility] Protein, pl 7.5 6.5 - 8.5 g/dL [facility] Albumin 4.1 3.5 - 5.0 g/dL [facility] Alk phos 109 40 - 130 Units/L [facility] ALT 11 7 - 45 Units/L [facility] AST 20 10 - 45 Units/L [facility] Blood 11/15/2024 2:40 PM BUSINESS EXECUTIVE 11/15/2024 10:48 PM BUSINESS EXECUTIVE Zeny Benitez NP LAB BLOOD ORDERABLES Final Re sult [facility] [address] [place] [address] from Last 3 Months Insurance [employer] MEDICARE [facility] MEDIC[facility] Address[facility] [id number] [place] [phone] Care Teams Narcotics And Vice Detective Relationship Specialty Start Date End Date Zeny Benitez NP PCP - General Family Medicine 03/22/24 Chace Hsieh MD [address] [address] Consulting Physician Cardiology 11/15/24
--- OUTSIDE RECORDS SUMMARY | 2024-12-05 08:27 | XMS_ITS | Clinical Summary ---
Author Organization [facility] Facility Address [address] [place] [address] Care Team Providers Care Bilingual Loan Processor Name Role Phone Zeny Benitez Primary Care Provider [phone] Encounters Date Type Department Care Team Description 11/22/2024 Documentation Only [facility], [address] [address] ProviderTobin MD from Last 3 Months Social History Tobacco Use Types Packs/Day Years Used Date Smoking Tobacco: Never Assessed Comments Unknown Sex and Gender Information Value Date Recorded Sex Assigned at Not on file Legal Sex Female 1:59 PM EDT Gender Identity Not on file Sexual Orientation Not on file Plan of Treatment Health Maintenance Due Date Last Done Comments Pneumococcal Vaccine: 65+ Ye ars (1 of 2 - PCV) 1951 Influenza Vaccine Completed 11/09/2024 Hepatitis B Vaccine Aged Out No longe r eligible based on patient's age to complete this topic Insurance [employer] [facility] ADV PPO ([id number]) Care Teams Bilingual Loan Processor Relationship Specialty Start Date End Date Zeny Benitez FNP [address] [place] [address] PCP - General Nurse Practitioner 11/22/24
--- OUTSIDE RECORDS SUMMARY | 2024-12-05 08:27 | XMS_ITS | Clinical Summary ---
Author Organization [facility] [address] [facility] [address] Address [address] [place] [address] Care Team Providers Care Tray Drier Operator Name Role Phone Zeny Benitez NP Primary Care Provider [phone] Chace Hsieh MD Unavailable [phone] Allergies Active Allergy Reactions Criticality Noted Date Comments Penicillins Rash Medium 03/22/2024 Medications vit H-C-[id number]-zinc- lutein 226-90-0.8-5 mg capsule Take by mouth [...] 11/15/2024 Assessment & Plan (11/15/2024 2:33 PM DATA ARCHITECT MANAGER): BMI Follow-up includes: nutrition counseling. Encounter for routine adult physical exam with abnormal findings 05/10/2024 Assessment & Plan (11/15/2024 2:49 PM DATA ARCHITECT MANAGER): -Recommended: Healthy diet. Avoiding junk food/fast food. [...] scan today and this was ordered at [facility] Hyperlipidemia LDL goal <70 03/22/2024 Assessment & Plan (11/15/2024 2:49 PM DATA ARCHITECT MANAGER): Doing well on atorvastatin. Repeat lipid panel [...] 03/22/2024 Assessment & Plan (11/15/2024 2:50 PM DATA ARCHITECT MANAGER): Continues on Trelegy. Managed by pulmonology Assessment [...] 07/2024 Assessment & Plan (11/15/2024 2:51 PM DATA ARCHITECT MANAGER): Negative biopsy. Being followed by pulmonology Encounters Date Type Department Care Team Description 12/03/2024 Results Follow-Up [facility] at [address] [phone] Zeny Benitez NP 11/28/2024 3:10 PM CDT - 11/28/2024 11:59 PM CDT Hospital Encounter [address] [address] Stage 3b chronic kidney disease (HCC); Other general symptoms and signs Discharge Disposition: Discharge to home or self care 11/28/2024 3:00 PM CDT Lab [facility] Outpatient Lab at [address] [phone] 11/21/2024 Telephone [facility] [address] [facility] [address] [place] [address] La Dill NP 11/16/2024 Results Follow-Up [facility] at [address] [phone] Zeny Benitez NP Stage 3b chronic kidney disease (HCC) (Primary Dx); Other general symptoms and signs 11/15/2024 2:45 PM DATA ARCHITECT MANAGER Lab [facility] at [address] [phone] Encounter for routine adult physical exam with abnormal findings (Primary Dx) 11/15/2024 2:40 PM DATA ARCHITECT MANAGER - 11/15/2024 11:59 PM DATA ARCHITECT MANAGER [place] [address] Essential hypertension; Prediabetes; Vitamin D deficiency; Hyperlipidemia LDL goal <70 Discharge Disposition: Discharge to home or self care 11/15/2024 2:00 PM DATA ARCHITECT MANAGER Office Visit [facility] at [address] [phone] Zeny Benitez NP Encounter for routine adult physical exam with abnormal findings (Primary Dx); Essential hypertension; Hyperlipidemia LDL goal <70; Chronic a-fib (HCC); Centrilobular emphysema (HCC); Vitamin D deficiency; Prediabetes; Class 1 obesity due to excess calories with serious comorbidity and body mass index (BMI) of 34.0 to 34.9 in adult; Pulmonary nodule 1 cm or greater in diameter 11/08/2024 1:30 PM DATA ARCHITECT MANAGER Office Visit [facility] [address] [place] [address] La Dill NP Persistent atrial fibrillation (HCC) (Primary Dx); Chronic anticoagulation; Mild left ventricular systolic dysfunction; Dyslipidemia; Class 1 obesity due to excess calories with serious comorbidity and body mass index (BMI) of 34.0 to 34.9 in adult from Last 3 Months Immunizations Immunization Administration Dates Next Due Influenza, Quadrivalent, Hig h Dose, Preservative Free, Intrr 08/19/2022 Influenza, Trivalent, Cell Culture-based MDCK, Preservative Free, Antibiotic Free, Intramuscular 11/09/2024 Influenza, Unspecified 05/10/2024(Deferr ed: Patient Refused),09/12/2023(Deferred: Patient Refused) Pneumococcal Conjugate Pcv20 05/10/2024 Medical History Medical History Date Comments Hypertension Hyperlipidemia Atrial fibrillation (HCC) Cataracts, bilateral Family History Medical History Relation Name Comments Heart disease Brother 1 Heart disease Brother 2 Heart disease Brother 3 Heart disease Brother 4 Cancer Father Heart attack Mother Cancer Sister Relation Name Status Comments Brother 1 Brother 2 Brother 3 Brother 4 Father Mother Sister Social History Tobacco Use Types Packs/Day Years [...] on file Legal Sex Female 5:28 PM DATA ARCHITECT MANAGER Gender Identity Not on file Sexual Orientation Not on file Obstetrics History Last Filed Vital Signs Vital Sign Reading Time Taken Comments Blood Pressure 134/86 11/15/2024 2:09 PM DATA ARCHITECT MANAGER Pulse 92 11/15/2024 2:09 PM DATA ARCHITECT MANAGER Temperature 36.7 C (98.1 F) 11/15/2024 2:09 PM DATA ARCHITECT MANAGER Respiratory Rate 18 11/15/2024 2:09 PM DATA ARCHITECT MANAGER Oxygen Saturation 97% 11/15/2024 2:09 PM DATA ARCHITECT MANAGER Inhaled Oxygen Concentration - - Weight 102.4 kg (225 lb 12.8 oz) 2024 2:09 PM DATA ARCHITECT MANAGER Height 172.7 cm (5' 8 ) 11/15/2024 2:09 PM DATA ARCHITECT MANAGER Body Mass Index 34.33 11/15/2024 2:09 PM DATA ARCHITECT MANAGER Plan of Treatment Health Maintenance Due Date Last Done Comments Osteoporosis Screening-Bone Density Scan 1945 DTaP/Tdap/Td Vaccine (1 - Tdap) 1954 Hepatitis B Screening 1961 Zoster Vaccine (1 of 2) 1993 Covid-19 Vaccine (2023-2 5 season) 2025 11/09/2024, 08/19/2022, 01/19/2022, Additional history exists Depression Screening 05/10/2025 05/10/2024 Fall Risk Assessment 05/10/2025 05/10/2024 Well Visit 65+ 11/15/2025 11/15/2024 Pneumococcal vaccine 65+ Completed 05/10/2024 Influenza Vaccine Completed 11/09/2024, 08/19/2022 Procedures Procedure Name Priority Date/Time Associated Diagnosis Comments URINE CULTURE Routine 11/28/2024 3:10 PM CDT Stage 3b chronic kidney disease (HCC) Other general symptoms and signs EGFR Routine 11/15/2024 2:40 PM DATA ARCHITECT MANAGER Hyperlipidemia LDL goal <70 DIFFERENTIAL AUTO Routine 11/15/2024 2:4 0 PM DATA ARCHITECT MANAGER Essential hypertension LIPID PANEL Routine 11/15/2024 2:40 PM DATA ARCHITECT MANAGER Hyperlipidemia LDL goal <70 COMPREHENSIVE METABOLIC PANEL Routine 11/15/2024 2:40 PM DATA ARCHITECT MANAGER Hyperlipidemia LDL goal <70 VITAMIN D 25 HYDROXY Routine 11/15/2024 2:40 PM DATA ARCHITECT MANAGER Vitamin D deficiency HEMOGLOBIN A1C Routine 11/15/2024 2:40 PM DATA ARCHITECT MANAGER Prediabetes CBC WITH AUTO DIFFERENTIAL Routine 11/15/2024 2:40 PM DATA ARCHITECT MANAGER Essential hypertension from Last 3 Months Results * Urine culture Urine, bladder (11/28/2024 3:10 PM CDT) Report Final Report: Less than 100,000 colonies/mL (clinically insignificant growth based on current clinical standards) Comment:Testing performed by : [facility], [address] [facility], [place]., [address] Organism (CLINICALLY INSIGNIFICANT GROWTH STEVEN Urine, bladder 11/28/2024 3: 10 PM CDT 11/28/2024 9:57 PM CDT Narrative CERJESSICA - 11/30/2024 7:28 AM CDT Testing performed by [facility] Microbiology Laboratory ([phone]) Zeny Benitez NP LAB MICROBIOLOGY - GENERAL OR DERABLES Final Result Performing Organization Address City/[facility] Co de Phone Number STEVEN WALDRON [address] Department of Laboratories [place], [place] [phone] * (ABNORMAL) eGFR (11/15/2024 2:40 PM DATA ARCHITECT MANAGER) eGFR 47(L) >=60 mL/min/1. 73 m2 Comment: [...] of Race in Diagnosing Kidney Disease, JASN 2020). The CKD-EPI equation should not be used for patients with unstable renal function and has not been validated in children and those over 70. Current interpretive data was last reviewed 2021. Blood 11/15/2024 2:40 PM DATA ARCHITECT MANAGER 11/15/2024 10:51 PM DATA ARCHITECT MANAGER Zeny Benitez NP LAB BLOOD ORDERABLES Final Re sult Performing Organization Address City/[facility]/ZIP Co de Phone Number STEVEN WALDRON [address] Department [place] [address] * Differential, auto (11/15/2024 2:40 PM DATA ARCHITECT MANAGER) Pathologist [facility] Neutrophil abs 3.9 1.5 - 6.5 K/cumm Imm gran abs 0.0 0.0 - 0.1 K/cumm [facility] Lymphocyte abs 2.1 0.8 - 3.3 K/cumm [facility] Monocyte abs 0.7 0.2 - 0.8 K/cumm [facility] Eosinophil abs 0.2 0.0 - 0.5 K/cumm [facility] Basophil abs 0.0 0.0 - 0.1 K/cumm [facility] Neutrophil pct 56.6 % [facility] Comment: Interpretive Data Percent cell count reference ranges are not reported, since discordance with absolute values may lead to misinterpretation of CBC data. Current Interpretive Data was last revised on 2017. Imm gran pct 0.3 % [facility] Comment: Interpretive Data Percent cell count reference ranges are not reported, since discordance with absolute values may lead to misinterpretation of CBC data. Current Interpretive Data was last revised on 2017. Lymphocyte pct 30.5 % [facility] Comment: Interpretive Data Percent cell count reference ranges are not reported, since discordance with absolute values may lead to misinterpretation of CBC data. Current Interpretive Data was last revised on 2017. Monocyte pct 9.8 % [facility] Comment: Interpretive Data Percent cell count reference ranges are not reported, since discordance with absolute values may lead to misinterpretation of CBC data. Current Interpretive Data was last revised on 2017. Eosinophil pct 2.5 % [facility] Comment: Interpretive Data Percent cell count reference ranges are not reported, since discordance with absolute values may lead to misinterpretation of CBC data. Current Interpretive Data was last revised on 2017. Basophil pct 0.3 % [facility] Comment: Interpretive Data Percent cell count reference ranges are not reported, since discordance with absolute values may lead to misinterpretation of CBC data. Current Interpretive Data was last revised on 2017. Blood 11/15/2024 2:40 PM DATA ARCHITECT MANAGER 11/15/2024 10:48 PM DATA ARCHITECT MANAGER Zeny Benitez NP LAB BLOOD ORDERABLES Final Re sult STEVEN WALDRON [address] Department [place] [address] * (ABNORMAL) CBC with auto differential (11/15/2024 2:40 PM DATA ARCHITECT MANAGER) Pathologist [facility] WBC 6.8 3.8 - 9.9 K/cumm Hgb 13.1 11.9 - 15.5 g/dL [facility] Hct 42.5 35.6 - 45.5 % [facility] Plt 189 150 - 400 K/cumm [facility] MPV 10.9 9.1 - 12.3 fL [facility] RBC 4.17 3.90 - 5.20 M/cumm [facility] MCV 101.9(H) 81.3 - 96.4 fL [facility] MCH 31.4 27.1 - 33.3 pg [facility] MCHC 30.8(L) 32.3 - 35.7 g/dL [facility] RDW CV 14.0 11.1 - 14.9 % [facility] CH RDW SD 52.5(H) 35.7 - 48.1 fL [facility] NRBC abs 0.00 0.00 - 0.01 K/cumm [facility] Blood 11/15/2024 2:40 PM DATA ARCHITECT MANAGER 11/15/2024 10:48 PM DATA ARCHITECT MANAGER Zeny Benitez NP LAB BLOOD ORDERABLES Final Re sult Performing Organization Address [facility]/[place] Co de Phone Number STEVEN WALDRON [address] [employer] [place], [place] [phone] * Vitamin D 25 hydroxy (11/15/2024 2:40 PM DATA ARCHITECT MANAGER) [facility] Vitamin D 25-OH 63 30 - 80 ng/mL Blood 11/15/2024 2:40 PM DATA ARCHITECT MANAGER 11/15/2024 10:48 PM DATA ARCHITECT MANAGER Zeny Benitez NP LAB BLOOD ORDERABLES Final Re sult Performing Organization Address [facility]/[place] Co de Phone Number STEVEN WALDRON [address] [facility] [employer] [place], [place] [phone] * Hemoglobin A1c (11/15/2024 2:40 PM DATA ARCHITECT MANAGER) [facility] Hgb A1C 5.3 4.0 - 5.6 % Estimated Average Glucose 105 mg/dL STEVEN WALDRON Comment: The ADA recommends reporting an estimated Average Glucose (eAG) with all Hemoglobin A1c results using the equation derived from a study of 507 normal and diabetic adults. Minority populations were underrepresented and children were not included. (Diabetes Care 31:5941-4315, 2008). The eAG is not equivalent to a fasting glucose. Blood 11/15/2024 2:40 PM DATA ARCHITECT MANAGER 11/15/2024 10:48 PM DATA ARCHITECT MANAGER us Zeny Benitez NP LAB BLOOD ORDERABLES Final Re sult STEVEN WALDRON [address] Department [place] [address] * Lipid panel (11/15/2024 2:40 PM DATA ARCHITECT MANAGER) Cholesterol 151 30 - 199 mg/dL Comment: [...] on 2018. Triglycerides 149 <=149 mg/dL STEVEN WALDRON Comment: Interpretive Data Ages < or = [...] on 2018. HDL 52 >=40 mg/dL STEVEN WALDRON Comment: Interpretive Data Ages < or = [...] 2018. LDL, calculated 73 <=129 mg/dL STEVEN WALDRON Comment: Interpretive Data Ages < or = 19 years Acceptable: <110 mg/dL Borderline high: 110-129 mg/dL High: >or= 130 mg/dL Ages > or = 20 years Optimal: <100 mg/dL Near optimal: 100-129 mg/dL Borderline high: 130-159 mg/dL High: >160 mg/dL Calculated using the Tyrone LDL-C estimating equation. This equation was implemented on 2024. Prior to this date LDL-C was estimated using the Friedewald equation. Literature References: 1. Expert Panel on Integrated Guidelines for Cardiovascular Health and Risk Reduction in Children and Adolescents. Pediatrics 2011;128:S213 2. NCEP Expert Panel. Circulation 2004;110:227 3. Tyrone Shepard et al. LATONIA Cardiol. 2019January 10;5(5):540-548. doi: 10.1001/jamacardio.2020.0013 Current Interpretive Data was last revised on 2024. Non-HDL Cholesterol 99 mg/dL STEVEN WALDRON Comment: Interpretive Data Ages < or = [...] 3 [facility] Blood 11/15/2024 2:40 PM DATA ARCHITECT MANAGER 11/15/2024 10:48 PM DATA ARCHITECT MANAGER Zeny Benitez NP LAB [place]LOOD [place] [address] [address] Department [place] [address] * (ABNORMAL) Comprehensive metabolic panel (11/15/2024 2:40 PM DATA ARCHITECT MANAGER) Sodium 144 135 - 145 mmol/L Potassium, [...] Units/L [facility] Blood 11/15/2024 2:40 PM DATA ARCHITECT MANAGER 11/15/2024 10:48 PM DATA ARCHITECT MANAGER Zeny Benitez NP LAB BLOOD ORDERABLES Final Re sult [facility] Organization Address City/State/ZIP Co de Phone Number STEVEN WALDRON [address] Department [place] [address] from Last 3 Months Insurance [employer] MED[employer]ARE Care Teams Tray Drier Operator Relationship Specialty Start Date End Date Zeny Benitez NP PCP - General Family Medicine 03/22/24 Chace Hsieh MD [address] [address] Consulting Physician Cardiology 11/15/24
--- OUTSIDE RECORDS SUMMARY | 2024-12-05 08:27 | XMS_ITS | Encounter Summary ---
Author Organization [facility] Healthcare Address [address] [place] [address] Care Team Providers Care Front Office Attendant Name Role Phone Zeny Benitez NP Primary Care Provider Chace Hsieh MD Unavailable Encounter Details Date Type Department Care Team (Late st Contact Info) Description 12/03/2024 Results Follow-Up [facility] Primary Care at [address] [phone] Zeny Benitez NP [address] [place] [address] [address] [place] [address] Social History Tobacco Use Types Packs/Day Years Used Date Smoking Tobacco: Former Cigarettes 0.5 40.7 S tarted: 03/22/1984 Passive Smoke Exposure: Past Smokeless Tobacco: Never PHQ-2 Answer Date Recorded PHQ-2 Total Score (If total score is 3 or more points, staff should administer the PHQ-9) 0 05/10/2024 Comments Unknown Sex and Gender Information Value Date Recorded Sex Assigned at Not on file Legal Sex Female 5:28 PM [facility] Gender Identity Not on file Sexual Orientation Not on file documented as of this encounter Miscellaneous Notes * Result Encounter Note - Zeny Benitez NP - 12/03/2024 7:48 AM CDT Negative urine culture documented in this encounter Plan of Treatment Not on file documented as of this encounter Visit Diagnoses Not on filedocumented in this encounter Care Teams Front Office Attendant Relationship Specialty Start Date End Date Zeny Benitez NP PCP - General Family Medicine 03/22/24 Chace Hsieh MD [address] [facility] [address] [place] [address] Consulting Physician Cardiology 11/15/24 documented as of this encounter
== END 2024-12-05 08:11 | disposition home or self-care (01) ==
PROVIDERS: PCP Nurse Practitioner Family; Visit Provider Internal Medicine Critical Care Medicine
DX: R91.1 Solitary pulmonary nodule (principal); J43.9 Emphysema, unspecified
CPT/HCPCS: 71250

== ENCOUNTER 2025-01-03 14:52 | Outpatient (CLI) | payer MEDICARE, SELFPAY ==
--- NOTE | ~2025-01-03 | DEXA_ITS ---
Bone Density Report Name: DEBBIE HOLT Age: 79 Sex: Female Ethnicity: White Date of : 1945 Indication: postmenopausal; screening for osteoporosis; height loss; Referring Provider: JENNACONCEPCION Study: Bone densitometry was performed. Exam Date: January 03, 2025 Accession number: [id number] Bone Density: Region BMD T-score Z-score Classification AP Spine(L1-L4) 0.968 -0.7 2.0 Normal Femoral Neck (Left) 0.642 -1.9 0.5 Osteopenia Total Hip (Left) 0.878 -0.5 1.6 Normal Femoral Neck (Right) 0.705 -1.3 1.1 Osteopenia Total Hip (Right) 0.808 -1.1 1.0 Osteopenia Total Hip Mean 0.843 -0.8 1.3 Normal World Health Organization criteria for BMD impression classify patients as: Normal (T-score at or above -1.0), Osteopenia (T-score between -1.0 and -2.5), or Osteoporosis (T-score at or below -2.5). 10-year Fracture Risk(1): Major Osteoporotic Fracture 15% Hip Fracture 6.0% Reported Risk Factors: [place] (), Neck BMD=0.642, BMI=34.5, smoking (1) FRAX(R) Version 3.08. Fracture probability calculated for an untreated patient. Fracture probability may be lower if the patient has received treatment. Clinical Information Provided by Patient: Smokes Has used the following medications: Vitamin D Patient maximum height was 68 Menopause Age: 46 No regular weight bearing exercise Does not regularly consume dairy products Drinks caffeinated beverages Onset of menses at age 10 Number of children 3 Impression: The patient has low bone mass, based on the Left Femoral Neck T-score. The patient has an estimated ten-year risk of hip fracture of 6% and an estimated ten-year risk of major fracture of 15%, based on the WHO FRAX algorithm. The patient has risk factors, including: smoking. Discussion: BONE DENSITY IS LOW AT ONE OR MORE SKELETAL SITES. THE PATIENT'S BMD AND CLINICAL RISK FACTORS CONTRIBUTE TO THIS PATIENT'S INCREASED RISK OF FRACTURE. This patient's lowest T-score is low at one or more skeletal sites. It meets the World Health Organization's (WHO) criteria for ?low bone mass? (T-score between -1.0 and -2.5). The patient's 10-year risk of hip fracture as calculated by FRAX exceeds the threshold where pharmacological therapy is recommended by the National Osteoporosis Foundation (NOF). However, all treatment decisions require clinical judgment and consideration of individual patient factors, including patient preferences, comorbidities, previous drug use, risk factors not captured in the FRAX model (e.g., frailty, falls, vitamin D deficiency, increased bone turnover, interval significant decline in bone density) and possible under or overestimation of fracture risk by FRAX. The patient should follow a healthful lifestyle (good nutrition with adequate calcium and vitamin D, and appropriate weight-bearing exercise). Follow-Up: Consider a repeat BMD and Vertebral Fracture Assessment (VFA) exam in 2 years or sooner if medically necessary, to reassess this patient's status. Reported by: MIKE on 01/03/2025 3:41:00 PM. Reviewed, dictated and finalized at location [facility]ERS
--- NOTE | ~2025-01-03 | MM_ITS ---
EXAMINATION: MM screening miguelina BI w [facility] HISTORY: Screening TECHNIQUE: Craniocaudal and mediolateral oblique 3-D tomosynthesis images were obtained and synthetic 2-D images were generated. CAD analysis was submitted and interpreted. COMPARISON: Comparison to multiple prior studies sequentially, with oldest reviewed study dated 07/14. BREAST PARENCHYMAL COMPOSITION: Not dense: There are scattered areas of fibroglandular density. FINDINGS: There is no evidence of suspicious mass, calcification, or architectural distortion to sugg est malignancy in either breast. There has been no suspicious interval change. IMPRESSION: 1. No mammographic evidence of malignancy. 2. Recommend routine screening mammography in one year. BI-RADS Category 1: Negative Reviewed, dictated and finalized at location A.
--- OUTSIDE RECORDS SUMMARY | 2025-01-03 16:07 | XMS_ITS | Clinical Summary ---
Author Organization [facility] Facility Address [address] [address] Care Team Providers Care Flash Developer Name Role Phone Zeny Benitez ELECTRIC TRAIN DRIVER Primary Care Provider [phone] Encounters Date Type Department Care Team Description 12/19/[address] [facility], [address] [address] Tobin Boogie MD 12/19/2024 Documentation Only [address] [address] Tobin Boogie MD 11/22/2024 Documentation Only [address] [address] Tobin Boogie MD from Last 3 Months Social History Tobacco Use Types Packs/Day Years Used Date Smoking Tobacco: Never Assessed Comments Unknown Sex and Gender Information Value Date Recorded Sex Assigned at Not on file Legal Sex Female 1:59 PM EDT Gender Identity Not on file Sexual Orientation Not on file Plan of Treatment Upcoming Encounters Date Type Department Care Team (Late st Contact Info) Description 03/05/2025 2:30 PM CDT Office Visit [facility], [facility] [address] [facility] [address] [place] [phone] Richard Ulloa DO [address] [facility] [address] [place] [address] Health Maintenance Due Date Last Done Comments Pneumococcal Vaccine: 50+ Ye ars (1 of 2 - PCV) 1964 Influenza Vaccine Completed 11/09/2024 Hepatitis B Vaccine Aged Out No longe r eligible based on patient's age to complete this topic Insurance [employer] MCR Adv PPO [id number]) Care Teams Flash Developer Relationship Specialty Start Date End Date Zeny Benitez FNP [address] [place] [id number] PCP - General Nurse Practitioner 11/22/24
--- OUTSIDE RECORDS SUMMARY | 2025-01-03 16:08 | XMS_ITS | Clinical Summary ---
Author Organization [facility] [address] [facility] [address] Address [address] [place] [address] Care Team Providers Care Older Worker Specialist Name Role Phone Zeny Benitez NP Primary Care Provider [phone] Chace Hsieh MD Unavailable [phone] Allergies Active Allergy Reactions Criticality Noted Date Comments Penicillins Rash Medium 03/22/2024 Medications vit Q-E-deloph-zinc- lutein 226-90-0.8-5 mg capsule Take by mouth [...] 11/15/2024 Assessment & Plan (11/15/2024 2:33 PM AREA MECHANIC): BMI Follow-up includes: nutrition counseling. Encounter for routine adult physical exam with abnormal findings 05/10/2024 Assessment & Plan (11/15/2024 2:49 PM AREA MECHANIC): -Recommended: Healthy diet. Avoiding junk food/fast food. [...] scan today and this was ordered at [facility] Hyperlipidemia LDL goal <70 03/22/2024 Assessment & Plan (11/15/2024 2:49 PM AREA MECHANIC): Doing well on atorvastatin. Repeat lipid panel [...] 03/22/2024 Assessment & Plan (11/15/2024 2:50 PM AREA MECHANIC): Continues on Trelegy. Managed by pulmonology Assessment [...] 07/2024 Assessment & Plan (11/15/2024 2:51 PM AREA MECHANIC): Negative biopsy. Being followed by pulmonology Encounters Date Type Department Care Team Description 12/03/2024 Results Follow-Up [facility] Primary Care at [address] [phone] Zeny Benitez NP 11/28/2024 3:10 PM CDT - 11/28/2024 11:59 PM CDT Hospital Encounter [address] [address] Stage 3b chronic kidney disease (HCC); Other general symptoms and signs Discharge Disposition: Discharge to home or self care 11/28/2024 3:00 PM CDT Lab [facility] Outpatient Lab at [address] [phone] 11/21/2024 Telephone [facility] Medical [facility] Cardiology [address] [facility] [address] [place] [address] La Dill NP 11/16/2024 Results Follow-Up [facility] Primary Care at [address] [phone] Zeny Benitez NP Stage 3b chronic kidney disease (HCC) (Primary Dx); Other general symptoms and signs 11/15/2024 2:45 PM AREA MECHANIC Lab [facility] Outpatient Lab at [address] [phone] Encounter for routine adult physical exam with abnormal findings (Primary Dx) 11/15/2024 2:40 PM AREA MECHANIC - 11/15/2024 11:59 PM AREA MECHANIC [place] [address] Essential hypertension; Prediabetes; Vitamin D deficiency; Hyperlipidemia LDL goal <70 Discharge Disposition: Discharge to home or self care 11/15/2024 2:00 PM AREA MECHANIC Office Visit [facility] Primary Care at [address] [phone] Zeny Benitez NP Encounter for routine adult physical exam with abnormal findings (Primary Dx); Essential hypertension; Hyperlipidemia LDL goal <70; Chronic a-fib (HCC); Centrilobular emphysema (HCC); Vitamin D deficiency; Prediabetes; Class 1 obesity due to excess calories with serious comorbidity and body mass index (BMI) of 34.0 to 34.9 in adult; Pulmonary nodule 1 cm or greater in diameter 11/08/2024 1:30 PM AREA MECHANIC Office Visit [facility] Cardiology [address] [place] [address] La Dill NP Persistent atrial fibrillation (HCC) [...] Used Date Smoking Tobacco: Former Cigarettes 0.5 40.8 S tarted: 03/22/1984 Passive Smoke Exposure: Past Smokeless Tobacco: Never Tobacco Cessation:Counseling Given: Not Answered PHQ-2 Answer Date Recorded PHQ-2 Total Score (If total score is 3 or more points, staff should administer the PHQ-9) 0 05/10/2024 Comments Unknown Sex and Gender Information Value Date Recorded Sex Assigned at Not on file Legal Sex Female 5:28 PM AREA MECHANIC Gender Identity Not on file Sexual Orientation Not on file Obstetrics History Last Filed Vital Signs Vital Sign Reading Time Taken Comments Blood Pressure 134/86 11/15/2024 2:09 PM AREA MECHANIC Pulse 92 11/15/2024 2:09 PM AREA MECHANIC Temperature 36.7 C (98.1 F) 11/15/2024 2:09 PM AREA MECHANIC Respiratory Rate 18 11/15/2024 2:09 PM AREA MECHANIC Oxygen Saturation 97% 11/15/2024 2:09 PM AREA MECHANIC Inhaled Oxygen Concentration - - Weight 102.4 kg (225 lb 12.8 oz) 11/15/2024 2:09 PM AREA MECHANIC Height 172.7 cm (5' 8 ) 11/15/2024 2:09 PM AREA MECHANIC Body Mass Index 34.33 11/15/2024 2:09 PM AREA MECHANIC Plan of Treatment Health Maintenance Due Date [...] and signs EGFR Routine 11/15/2024 2:40 PM AREA MECHANIC Hyperlipidemia LDL goal <70 DIFFERENTIAL AUTO Routine 11/15/2024 2:4 0 PM AREA MECHANIC Essential hypertension LIPID PANEL Routine 11/15/2024 2:40 PM AREA MECHANIC Hyperlipidemia LDL goal <70 COMPREHENSIVE METABOLIC PANEL Routine 11/15/2024 2:40 PM AREA MECHANIC Hyperlipidemia LDL goal <70 VITAMIN D 25 HYDROXY Routine 11/15/2024 2:40 PM AREA MECHANIC Vitamin D deficiency HEMOGLOBIN A1C Routine 11/15/2024 2:40 PM AREA MECHANIC Prediabetes CBC WITH AUTO DIFFERENTIAL Routine 11/15/2024 2:40 PM AREA MECHANIC Essential hypertension from Last 3 Months Results * Urine culture Urine, bladder (11/28/2024 3:10 PM CDT) Report Final Report: Less than 100,000 colonies/mL (clinically insignificant growth based on current clinical standards) Comment:Testing performed by : [facility], [address] [facility], [place]., [address] Organism (CLINICALLY INSIGNIFICANT GROWTH STEVEN Urine, bladder 11/28/2024 3: 10 PM CDT 11/28/2024 9:57 PM CDT Narrative CERJESSICA - 11/30/2024 7:28 AM CDT Testing performed by [facility] Microbiology Laboratory ([phone]) Zeny Benitez NP LAB MICROBIOLOGY - GENERAL OR DERABLES Final Result Performing Organization Address City/[facility] Co de Phone Number STEVEN WALDRON [address] Department of Laboratories [place], [place] [id number] * (ABNORMAL) eGFR (11/15/2024 2:40 PM AREA MECHANIC) eGFR 47(L) >=60 mL/min/1. 73 m2 Comment: [...] last reviewed 2021. Blood 11/15/2024 2:40 PM AREA MECHANIC 11/15/2024 10:51 PM AREA MECHANIC Zeny Benitez NP LAB BLOOD ORDERABLES Final Re sult Performing Organization Address City/[facility]/ZIP Co de Phone Number STEVEN WALDRON [address] Department [place] [address] * Differential, auto (11/15/2024 2:40 PM AREA MECHANIC) Pathologist [facility] Neutrophil abs 3.9 1.5 - 6.5 K/cumm Imm gran abs 0.0 0.0 - 0.1 K/cumm [facility] Lymphocyte abs 2.1 0.8 - 3.3 K/cumm [facility] Monocyte abs 0.7 0.2 - 0.8 K/cumm [facility] Eosinophil abs 0.2 0.0 - 0.5 K/cumm [facility] Basophil abs 0.0 0.0 - 0.1 K/cumm [facility] Neutrophil pct 56.6 % [facility] Comment: Interpretive Data Percent cell count reference ranges are not reported, since discordance with absolute values may lead to misinterpretation of CBC data. Current Interpretive Data was last revised on 2017. Imm gran pct 0.3 % [facility] Comment: Interpretive Data Percent cell count reference ranges are not reported, since discordance with absolute values may lead to misinterpretation of CBC data. Current Interpretive Data was last revised on 2017. Lymphocyte pct 30.5 % [facility] Comment: Interpretive Data Percent cell count reference ranges are not reported, since discordance with absolute values may lead to misinterpretation of CBC data. Current Interpretive Data was last revised on 2017. Monocyte pct 9.8 % [facility] Comment: Interpretive Data Percent cell count reference ranges are not reported, since discordance with absolute values may lead to misinterpretation of CBC data. Current Interpretive Data was last revised on 2017. Eosinophil pct 2.5 % [facility] Comment: Interpretive Data Percent cell count reference ranges are not reported, since discordance with absolute values may lead to misinterpretation of CBC data. Current Interpretive Data was last revised on 2017. Basophil pct 0.3 % [facility] Comment: Interpretive Data Percent cell count reference ranges are not reported, since discordance with absolute values may lead to misinterpretation of CBC data. Current Interpretive Data was last revised on 2017. Blood 11/15/2024 2:40 PM AREA MECHANIC 11/15/2024 10:48 PM AREA MECHANIC Zeny Benitez NP LAB BLOOD ORDERABLES Final Re sult STEVEN WALDRON [address] Department [place] [address] * (ABNORMAL) CBC with auto differential (11/15/2024 2:40 PM AREA MECHANIC) Pathologist [facility] WBC 6.8 3.8 - 9.9 K/cumm Hgb 13.1 11.9 - 15.5 g/dL [facility] Hct 42.5 35.6 - 45.5 % [facility] Plt 189 150 - 400 K/cumm [facility] MPV 10.9 9.1 - 12.3 fL [facility] RBC 4.17 3.90 - 5.20 M/cumm [facility] MCV 101.9(H) 81.3 - 96.4 fL [facility] MCH 31.4 27.1 - 33.3 pg [facility] MCHC 30.8(L) 32.3 - 35.7 g/dL [facility] RDW CV 14.0 11.1 - 14.9 % [facility] RDW SD 52.5(H) 35.7 - 48.1 fL [facility] NRBC abs 0.00 0.00 - 0.01 K/cumm [facility] CH Blood 11/15/2024 2:40 PM AREA MECHANIC 11/15/2024 10:48 PM AREA MECHANIC Zeny Benitez NP LAB BLOOD ORDERABLES Final Re sult Performing Organization Address [facility] Co de Phone Number STEVEN WALDRON [address] [place], [place] [id number] * Vitamin D 25 hydroxy (11/15/2024 2:40 PM AREA MECHANIC) [facility] Vitamin D 25-OH 63 30 - 80 ng/mL Blood 11/15/2024 2:40 PM AREA MECHANIC 11/15/2024 10:48 PM AREA MECHANIC Zeny Benitez NP LAB BLOOD ORDERABLES Final Re sult Performing Organization Address [facility] Co de Phone Number STEVEN WALDRON [address] [facility] [employer] [place], [place] [id number] * Hemoglobin A1c (11/15/2024 2:40 PM AREA MECHANIC) [facility] Hgb A1C 5.3 4.0 - 5.6 % Estimated Average Glucose 105 mg/dL STEVEN WALDRON Comment: The ADA recommends reporting an estimated Average Glucose (eAG) with all Hemoglobin A1c results using the equation derived from a study of 507 normal and diabetic adults. Minority populations were underrepresented and children were not included. (Diabetes Care 31:9462-0673, 2008). The eAG is not equivalent to a fasting glucose. Blood 11/15/2024 2:40 PM AREA MECHANIC 11/15/2024 10:48 PM AREA MECHANIC us Zeny Benitez NP LAB BLOOD ORDERABLES Final Re sult STEVEN WALDRON [address] [address] Department [place] [address] * Lipid panel (11/15/2024 2:40 PM AREA MECHANIC) Cholesterol 151 30 - 199 mg/dL Comment: [...] 3 [facility] Blood 11/15/2024 2:40 PM AREA MECHANIC 11/15/2024 10:48 PM AREA MECHANIC Zeny Benitez NP LAB [place]LOOD [place] [address] [address] Department [place] [address] * (ABNORMAL) Comprehensive metabolic panel (11/15/2024 2:40 PM AREA MECHANIC) Sodium 144 135 - 145 mmol/L Potassium, [...] Units/L [facility] Blood 11/15/2024 2:40 PM AREA MECHANIC 11/15/2024 10:48 PM AREA MECHANIC Zeny Benitez NP LAB BLOOD ORDERABLES Final Re sult [facility] Organization Address City/State/ZIP Co de Phone Number STEVEN WALDRON [address] [address] Department [place] [address] from Last 3 Months Insurance [employer] MED[employer] Care Teams Older Worker Specialist Relationship Specialty Start Date End Date Zeny Benitez NP PCP - General Family Medicine 03/22/24 Chace Hsieh MD [address] [address] Consulting Physician Cardiology 11/15/24
--- OUTSIDE RECORDS SUMMARY | 2025-01-03 16:08 | XMS_ITS | Referral Summary ---
Author Organization [facility] [address] [place] [address] Address [address] [facility] [address] [place] [address] Care Team Providers Care First Coat Sander Name Role Phone Zeny Benitez NP Primary Care Provider [phone] Chace Hsieh MD Unavailable Encounters Date Type Department Care Team Description 12/03/2024 Results Follow-Up [facility] Primary Care at [address] [phone] Zeny Benitez NP 11/28/2024 3:10 PM CDT - 11/28/2024 11:59 PM CDT Hospital Encounter [address] [address] Stage 3b chronic kidney disease (HCC); Other general symptoms and signs Discharge Disposition: Discharge to home or self care 11/28/2024 3:00 PM CDT Lab [facility] Outpatient Lab at [address] [phone] 11/21/2024 Telephone [facility] Cardiology [address] [facility] [address] [place] [address] La Dill NP 11/16/2024 Results Follow-Up [facility] Primary Care at [address] [phone] Zeny Benitez NP Stage 3b chronic kidney disease (HCC) (Primary Dx); Other general symptoms and signs 11/15/2024 2:40 PM TABLE ATTENDANT - 11/15/2024 11:59 PM TABLE ATTENDANT Hospital Encounter [address] [address] Essential hypertension; Prediabetes; Vitamin D deficiency; Hyperlipidemia LDL goal <70 Discharge Disposition: Discharge to home or self care 11/15/2024 2:45 PM TABLE ATTENDANT Lab [facility] Outpatient Lab at [address] [phone] Encounter for routine adult physical exam with abnormal findings (Primary Dx) 11/15/2024 2:00 PM TABLE ATTENDANT Office Visit [facility] Primary Care at [address] [phone] Zeny Benitez NP Encounter for [...] or greater in diameter 11/08/2024 1:30 PM TABLE ATTENDANT Office Visit [facility] Cardiology [address] [place] [address] La Dill NP Persistent atrial fibrillation (HCC) (Primary Dx); Chronic anticoagulation; Mild left ventricular systolic dysfunction; Dyslipidemia; Class 1 obesity due to excess calories with serious comorbidity and body mass index (BMI) of 34.0 to 34.9 in adult from Last 3 Months Allergies Active Allergy Reactions Criticality Noted Date Comments Penicillins Rash Medium 03/22/2024 Medications vit B-S-mvhbqd-zinc- lutein 226-90-0.8-5 mg capsule Take by mouth [...] 11/15/2024 Assessment & Plan (11/15/2024 2:33 PM TABLE ATTENDANT): BMI Follow-up includes: nutrition counseling. Encounter for routine adult physical exam with abnormal findings 05/10/2024 Assessment & Plan (11/15/2024 2:49 PM TABLE ATTENDANT): -Recommended: Healthy diet. Avoiding junk food/fast food. [...] scan today and this was ordered at [facility] Hyperlipidemia LDL goal <70 03/22/2024 Assessment & Plan (11/15/2024 2:49 PM TABLE ATTENDANT): Doing well on atorvastatin. Repeat lipid panel [...] 03/22/2024 Assessment & Plan (11/15/2024 2:50 PM TABLE ATTENDANT): Continues on Trelegy. Managed by pulmonology Assessment [...] 07/2024 Assessment & Plan (11/15/2024 2:51 PM TABLE ATTENDANT): Negative biopsy. Being followed by pulmonology Immunizations [...] on file Legal Sex Female 5:28 PM TABLE ATTENDANT Gender Identity Not on file Sexual Orientation Not on file Last Filed Vital Signs Vital Sign Reading Time Taken Comments Blood Pressure 134/86 11/15/2024 2:09 PM TABLE ATTENDANT Pulse 92 11/15/2024 2:09 PM TABLE ATTENDANT Temperature 36.7 C (98.1 F) 11/15/2024 2:09 PM TABLE ATTENDANT Respiratory Rate 18 11/15/2024 2:09 PM TABLE ATTENDANT Oxygen Saturation 97% 11/15/2024 2:09 PM TABLE ATTENDANT Inhaled Oxygen Concentration - - Weight 102.4 kg (225 lb 12.8 oz) 11/15/2024 2:09 PM TABLE ATTENDANT Height 172.7 cm (5' 8 ) 11/15/2024 2:09 PM TABLE ATTENDANT Body Mass Index 34.33 11/15/2024 2:09 PM TABLE ATTENDANT Plan of Treatment Not on file Procedures Procedure Name Priority Date/Time Associated Diagnosis Comments URINE CULTURE Routine 11/28/2024 3:10 PM CDT Stage 3b chronic kidney disease (HCC) Other general symptoms and signs EGFR Routine 11/15/2024 2:40 PM TABLE ATTENDANT Hyperlipidemia LDL goal <70 DIFFERENTIAL AUTO Routine 11/15/2024 2:4 0 PM TABLE ATTENDANT Essential hypertension LIPID PANEL Routine 11/15/2024 2:40 PM TABLE ATTENDANT Hyperlipidemia LDL goal <70 COMPREHENSIVE METABOLIC PANEL Routine 11/15/2024 2:40 PM TABLE ATTENDANT Hyperlipidemia LDL goal <70 VITAMIN D 25 HYDROXY Routine 11/15/2024 2:40 PM TABLE ATTENDANT Vitamin D deficiency HEMOGLOBIN A1C Routine 11/15/2024 2:40 PM TABLE ATTENDANT Prediabetes CBC WITH AUTO DIFFERENTIAL Routine 11/15/2024 2:40 PM TABLE ATTENDANT Essential hypertension from Last 3 Months Results * Urine culture Urine, bladder (11/28/2024 3:10 PM CDT) Report Final Report: Less than 100,000 colonies/mL (clinically insignificant growth based on current clinical standards) Comment:Testing performed by : [facility], [address] [place] [address]., [address] Organism (CLINICALLY INSIGNIFICANT GROWTH [facility] Urine, bladder 11/28/2024 3: 10 PM CDT 11/28/2024 9:57 PM CDT Narrative STEVEN - 11/30/2024 7:28 AM CDT Testing performed by [facility] Microbiology Laboratory ([phone]) Zeny Benitez NP LAB MICROBIOLOGY - GENERAL OR DERABLES Final Result [facility] [id number] Department of Laboratories [place], [place] [id number] * (ABNORMAL) eGFR (11/15/2024 2:40 PM TABLE ATTENDANT) eGFR 47(L) >=60 mL/min/1. 73 m2 Comment: [...] last reviewed 2021. Blood 11/15/2024 2:40 PM TABLE ATTENDANT 11/15/2024 10:51 PM TABLE ATTENDANT us Zeny Benitez NP LAB BLOOD ORDERABLES Final Re sult [facility] [address] [address] [place] [address] * Differential, auto (11/15/2024 2:40 PM TABLE ATTENDANT) Neutrophil abs 3.9 1.5 - 6.5 K/cumm Imm gran abs 0.0 0.0 - 0.1 K/cumm [facility] Lymphocyte abs 2.1 0.8 - 3.3 K/cumm [facility] Monocyte abs 0.7 0.2 - 0.8 K/cumm [facility] Eosinophil abs 0.2 0.0 - 0.5 K/cumm [facility] Basophil abs 0.0 0.0 - 0.1 K/cumm [facility] Neutrophil pct 56.6 % [facility] Comment: Interpretive Data Percent cell count reference ranges are not reported, since discordance with absolute values may lead to misinterpretation of CBC data. Current Interpretive Data was last revised on 2017. Imm gran pct 0.3 % [facility] Comment: Interpretive Data Percent cell count reference ranges are not reported, since discordance with absolute values may lead to misinterpretation of CBC data. Current Interpretive Data was last revised on 2017. Lymphocyte pct 30.5 % [facility] Comment: Interpretive Data Percent cell count reference ranges are not reported, since discordance with absolute values may lead to misinterpretation of CBC data. Current Interpretive Data was last revised on 2017. Monocyte pct 9.8 % [facility] Comment: Interpretive Data Percent cell count reference ranges are not reported, since discordance with absolute values may lead to misinterpretation of CBC data. Current Interpretive Data was last revised on 2017. Eosinophil pct 2.5 % [facility] Comment: Interpretive Data Percent cell count reference ranges are not reported, since discordance with absolute values may lead to misinterpretation of CBC data. Current Interpretive Data was last revised on 2017. Basophil pct 0.3 % [facility] Comment: Interpretive Data Percent cell count reference ranges are not reported, since discordance with absolute values may lead to misinterpretation of CBC data. Current Interpretive Data was last revised on 2017. Blood 11/15/2024 2:40 PM TABLE ATTENDANT 11/15/2024 10:48 PM TABLE ATTENDANT Zeny Benitez NP LAB BLOOD ORDERABLES Final Re sult [facility] [address] [address] Department [place] [address] * (ABNORMAL) CBC with auto differential (11/15/2024 2:40 PM TABLE ATTENDANT) WBC 6.8 3.8 - 9.9 K/cumm Hgb 13.1 11.9 - 15.5 g/dL [facility] Hct 42.5 35.6 - 45.5 % [facility] Plt 189 150 - 400 K/cumm [facility] MPV 10.9 9.1 - 12.3 fL [facility] RBC 4.17 3.90 - 5.20 M/cumm [facility] MCV 101.9(H) 81.3 - 96.4 fL [facility] MCH 31.4 27.1 - 33.3 pg [facility] MCHC 30.8(L) 32.3 - 35.7 g/dL [facility] RDW CV 14.0 11.1 - 14.9 % [facility] RDW SD 52.5(H) 35.7 - 48.1 fL [facility] NRBC abs 0.00 0.00 - 0.01 K/cumm [facility] Blood 11/15/2024 2:40 PM TABLE ATTENDANT 11/15/2024 10:48 PM TABLE ATTENDANT Zeny Benitez NP LAB BLOOD ORDERABLES Final Re sult Performing Organization Address [facility] de Phone Number STEVEN [address] [address] [place] [place] [address] * Vitamin D 25 hydroxy (11/15/2024 2:40 PM TABLE ATTENDANT) [facility] Vitamin D 25-OH 63 30 - 80 ng/mL Blood 11/15/2024 2:40 PM TABLE ATTENDANT 11/15/2024 10:48 PM TABLE ATTENDANT Zeny Benitez NP LAB BLOOD ORDERABLES Final Re sult Performing Organization Address [facility] de Phone Number STEPHFORMERLY NAMED [facility] [address] [address] [facility] [address] [place], [place] [id number] * Hemoglobin A1c (11/15/2024 2:40 PM TABLE ATTENDANT) [facility] Hgb A1C 5.3 4.0 - 5.6 % Estimated Average Glucose 105 mg/dL STEVEN Comment: The ADA recommends reporting an estimated Average Glucose (eAG) with all Hemoglobin A1c results using the equation derived from a study of 507 normal and diabetic adults. Minority populations were underrepresented and children were not included. (Diabetes Care 31:0637-2979, 2008). The eAG is not equivalent to a fasting glucose. Blood 11/15/2024 2:40 PM TABLE ATTENDANT 11/15/2024 10:48 PM TABLE ATTENDANT Zeny Benitez NP LAB BLOOD ORDERABLES Final Re sult Performing Organization Address [facility] de Phone Number STEPHJESSICA [address] [address] [facility] [place] [address] * Lipid panel (11/15/2024 2:40 PM TABLE ATTENDANT) [facility] Cholesterol 151 30 - 199 mg/dL Comment: [...] 3 [facility] Blood 11/15/2024 2:40 PM TABLE ATTENDANT 11/15/2024 10:48 PM TABLE ATTENDANT Zeny Benitez NP LAB BLOOD ORDERABLES Final Re sult [facility] [address] [address] [place] [address] * (ABNORMAL) Comprehensive metabolic panel (11/15/2024 2:40 PM TABLE ATTENDANT) Sodium 144 135 - 145 mmol/L Potassium, [...] Units/L [facility] Blood 11/15/2024 2:40 PM TABLE ATTENDANT 11/15/2024 10:48 PM TABLE ATTENDANT Zeny Benitez NP LAB BLOOD ORDERABLES Final Re sult STEVEN WALDRON [address] [address] [place] [address] from Last 3 Months Insurance [employer] MED[employer] Care Teams First Coat Sander Relationship Specialty Start Date End Date Zeny Benitez NP PCP - General Family Medicine 03/22/24 Chace Hsieh MD [address] [address] Consulting Physician Cardiology 11/15/24
== END 2025-01-03 14:53 | disposition home or self-care (01) ==
PROVIDERS: PCP Nurse Practitioner Family; Visit Provider Nurse Practitioner Family
DX: Z12.31 Encounter for screening mammogram for malignant neoplasm of breast (principal); M85.89 Other specified disorders of bone density and structure, multiple sites; Z78.0 Asymptomatic menopausal state
CPT/HCPCS: 77063; 77067; 77080

== ENCOUNTER 2025-04-15 12:17 | Outpatient (CLI) | payer MEDICARE, SELFPAY ==
--- NOTE | ~2025-04-15 | US_ITS ---
Renal-Bladder ultrasound Clinical History: Chronic kidney disease Technique: Real-time sonographic imaging of the kidneys and urinary bladder was performed. Findings: The right kidney measures 10.6 cm in length and the left kidney measures 10.8 cm. There is no hydronephrosis or renal calculus identified. Renal cortical echogenicity is within normal limits. No renal mass lesion is identified. The urinary bladder is moderately distended at the time of this exam. No intraluminal echoes are iden tified. Possible urinary bladder wall thickening versus underdistention. Impression: Unremarkable ultrasound of the kidneys appear Possible urinary bladder wall thickening versus underdistention. Correlate clinically for cystitis. Reviewed, dictated and finalized at location . Impression: Unremarkable ultrasound of the kidneys appear Possible urinary bladder wall thickening versus underdistention. Correlate clin ically for cystitis.
--- OUTSIDE RECORDS SUMMARY | 2025-04-15 12:21 | XMS_ITS | Referral Summary ---
Author Organization [facility] [place] [address] [place] [address] [address] [address] Care Team Providers Care Hospitality Aide Name Role Phone Chace Hsieh MD Unavailable Zeny Benitez NP Primary Care Provider [phone] Encounters Date Type Department Care Team Description 04/11/2025 2:30 PM CDT Office Visit [facility] Primary Care at [address] [address] Zeny Benitez NP Chronic wound (Primary Dx) 03/27/2025 2:30 PM CDT Office Visit [facility] Primary Care at [address] [address] Zeny Benitez NP Abscess of muscle of thigh (Primary Dx); Open wound 03/13/2025 11:30 AM CDT Clinical Support [facility] Primary Care at [address] [address] 03/07/2025 Telephone [facility] Primary Care at [address] [address] Zeny Benitez NP Medical Question/Miscellaneo us 02/25/2025 11:30 AM CDT Clinical Support [facility] Primary Care at [address] [address] 02/18/2025 11:30 AM CDT Office Visit [facility] Primary Care at [address] [address] Zeny Benitez NP Infected sebaceous cyst (Primary Dx); Open wound 02/15/2025 11:30 AM CDT Clinical Support [facility] Primary Care at [address] [address] Infected sebaceous cyst (Primary Dx) 02/13/2025 11:30 AM CDT Clinical Support [facility] Primary Care at [address] [address] 02/11/2025 11:30 AM CDT Clinical Support [facility] Primary Care at [address] [address] 02/07/2025 11:30 AM CDT Clinical Support [facility] Primary Care at [address] [address] 02/05/2025 11:30 AM CDT Office Visit [facility] Primary Care at [address] [address] Zeny Benitez NP Infected sebaceous cyst (Primary Dx) 02/01/2025 1:00 PM CDT Clinical Support [facility] Primary Care at [address] [address] 01/30/2025 12:30 PM CDT Office Visit [facility] Primary Care at [address] [address] Zeny Benitez NP Infected sebaceous cyst (Primary Dx) 01/25/2025 Telephone [facility] Primary Care at [address] [address] Zeny Benitez NP Med Refill from Last 3 Months Allergies Active Allergy Reactions Criticality Noted Date Comments Penicillins Rash Medium 03/22/2024 Medications vit M-H-gmsnjn-zin c-lutein 226-90-0.8-5 mg capsule Take by mouth Activ e sacubitriL-norbert sartan (Entresto) 24-26 mg tabletIndicati ons:chronic heart failure Take 1 tablet by mouth 2 (two) times a day 180 tablet 3 05/03/20 24 Active fluticasone propionate (FLONASE) 50 mcg/actuation nasal spray Administer 2 sprays into each nostril daily 3 each 4 05/10/20 24 Active atorvastatin (LIPITOR) 20 mg tablet Take 1 tablet (20 mg total) by mouth daily 90 tablet 4 05/11/20 24 025 Active Trelegy Ellipta 100-62.5-25 mcg inhaler 05/16/20 24 Active metoprolol XL (TOPROL-XL) 50 mg extended release tabletIndicati ons:Mild left ventricular systolic dysfunction Take 1 tablet (50 mg total) by mouth daily 90 tablet 3 08/16/20 24 025 Active cholecalcifero l (Vitamin D3) 2000 unit tablet Take by mouth daily Active vit A/vit C/vit E/zinc/copper (PRESERVISION AREDS ORAL) Take by mouth Acti ve calcium carbonate-padmini min D3 2,500 mg (1,000 mg elemental)-800 unit tablet Take by mouth Acti ve Eliquis 5 mg tablet TAKE 1 TABLET(5 MG) BY MOUTH TWICE DAILY 180 tablet 1 04/02/20 25 Active collagenase (SANTYL) ointment Apply topically daily 4mm x 2mm x 1cm deep right thigh wound 30 g 04/04/20 25 025 Active ergocalciferol (VITAMIN D) 50,000 unit capsule TAKE 1 CAPSULE BY MOUTH 1 TIME A WEEK 12 capsule 1 04/08/20 25 Active Eliquis 5 mg tablet Take 1 tablet (5 mg total) by mouth 2 (two) times a day 180 tablet 3 03/22/20 24 025 Discontinued ergocalciferol (VITAMIN D) 50,000 unit capsule TAKE 1 CAPSULE BY MOUTH 1 TIME A WEEK 12 capsule 1 10/22/19 25 025 Discontinued collagenase (SANTYL) ointment Apply topically daily 4mm x 2mm x 1cm deep right thigh wound 30 g 03/06/20 25 025 Discontinued(Re order) Active Problems Problem Noted Date Diagnosed Date Infected sebaceous cyst 01/30/2025 Assessment & Plan (02/05/2025 12:50 PM CDT): Open wound. Dressing removed. Measured. Repacked. May return every other day for repacking/ dressing change Assessment & Plan (01/30/2025 2:07 PM CDT): Incision and Drainage Performed by: Zeny Benitez NP Authorized by: Zeny Benitez NP Consent Given by: Patient Verbal consent obtained: Yes Risks, alternatives, and patient questions discussed: Yes Type: Cyst Body area: Lower extremity Location details: Right hip Anesthesia: Local infiltration Anesthetic total (ml): 4 (4ml 1% lidocaine with epinphrine) Scalpel size: 11 Incision type: Single straight Incision depth: Subcutaneous Complexity: Complex Drainage: Purulent (thick, yellow, sebaceous material, odorous) Drainage amount: Copious Drainage amount (ml): 180 Wound treatment: Drain placed and wound left open Packing material: 1/4 in gauze Patient tolerance: Patient tolerated the procedure well with no immediate complications Comments: Dr. Anaya was present for half of procedure and assisted in drainage. Class 1 obesity due to exces s calories with serious comorbidity and body mass index (BMI) of 34.0 to 34.9 in adult 11/15/2024 Assessment & Plan (11/15/2024 2:33 PM FEATHER SEPARATOR): BMI Follow-up includes: nutrition counseling. Encounter for routine adult physical exam with abnormal findings 05/10/2024 Assessment & Plan (11/15/2024 2:49 PM FEATHER SEPARATOR): -Recommended: Healthy diet. Avoiding junk food/fast food. [...] scan today and this was ordered at [facility] Hyperlipidemia LDL goal <70 03/22/2024 Assessment & Plan (11/15/2024 2:49 PM FEATHER SEPARATOR): Doing well on atorvastatin. Repeat lipid panel [...] 03/22/2024 Assessment & Plan (11/15/2024 2:50 PM FEATHER SEPARATOR): Continues on Trelegy. Managed by pulmonology Assessment [...] 07/2024 Assessment & Plan (11/15/2024 2:51 PM FEATHER SEPARATOR): Negative biopsy. Being followed by pulmonology Immunizations Immunization Administration Dates Next Due Influenza, Quadrivalent, Hig h Dose, Preservative Free, Intrr 08/19/2022 Influenza, Trivalent, Cell Culture-based MDCK, Preservative Free, Antibiotic Free, Intramuscular 11/09/2024 Influenza, Unspecified 05/10/2024(Deferr ed: Patient Refused),09/12/2023(Deferred: Patient Refused) Pneumococcal Conjugate Pcv20 05/10/2024 Social History Tobacco Use Types Packs/Day Years Used Date Smoking Tobacco: Former Cigarettes 0.5 41.1 S tarted: 03/22/1984 Passive Smoke Exposure: Past Smokeless Tobacco: Never Tobacco Cessation:Counseling Given: Not Answered PHQ-2 Answer Date Recorded PHQ-2 Total Score (If total score is 3 or more points, staff should administer the PHQ-9) 0 04/11/2025 Comments Unknown Sex and Gender Information Value Date Recorded Sex Assigned at Not on file Legal Sex Female 5:28 PM FEATHER SEPARATOR Gender Identity Not on file Sexual Orientation Not on file Last Filed Vital Signs Vital Sign Reading Time Taken Comments Blood Pressure 120/76 04/11/2025 2:24 PM CDT Pulse 104 04/11/2025 2:24 PM CDT Temperature 36.2 C (97.2 F) 04/11/2025 2:24 PM CDT Respiratory Rate 18 04/11/2025 2:24 PM CDT Oxygen Saturation 97% 04/11/2025 2:24 PM CDT Inhaled Oxygen Concentration - - Weight 96.1 kg (211 lb 14.4 oz) 04/11/2025 2:24 PM CDT Height 172.7 cm (5' 8) 04/11/2025 2:24 PM CDT Body Mass Index 32.22 04/11/2025 2:24 PM CDT Plan of Treatment Not on file Procedures Procedure Name Priority Date/Time Associated Diagnosis Comments INCISION AND DRAINAGE Routine 01/30/2025 12:30 PM CDT Infected sebaceous cyst DEXA AXIAL AND FOREARM BONE DENSITY SCAN Schedule Routine, Read Routine (OP Routine) 01/03/2025 2:54 PM CDT Post-menopausal from Last 3 Months or Most Recently Relevant to Health Maintenance Results * Incision and Drainage (01/30/2025 12:30 PM CDT) Narrative Zeny Benitez NP - 01/30/2025 12:30 PM CDT Zeny Benitez NP 01/30/2025 2:09 PM Incision and Drainage Performed by: Zeny Benitez NP Authorized by: Zeny Benitez NP Consent Given by: Patient Verbal consent obtained: Yes Risks, alternatives, and patient questions discussed: Yes Type: Cyst Body area: Lower extremity Location details: Right hip Anesthesia: Local infiltration Anesthetic total (ml): 4 (4ml 1% lidocaine with epinphrine) Scalpel size: 11 Incision type: Single straight Incision depth: Subcutaneous Complexity: Complex Drainage: Purulent (thick, yellow, sebaceous material, odorous) Drainage amount: Copious Drainage amount (ml): 180 Wound treatment: Drain placed and wound left open Packing material: 1/4 in gauze Patient tolerance: Patient tolerated the procedure well with no immediate complications Comments: Dr. Anaya was present for half of procedure and assisted in drainage. Zeny Benitez MEDICAL PLANNER IN CLINIC/BEDSIDE ORDERABLES Final Result * Dexa Axial Forearm Bone Density Scan (01/03/2025 2:54 PM CDT) Anatomical Region Laterality Modality Wrist, Body N/A Radiographic Elizabeth ging Zeny Benitez NP IMG DXA PROCEDURES Final Resu lt from Last 3 Months or Most Recently Relevant to Health Maintenance Insurance T MEDICARE Care Teams Hospitality Aide Relationship Specialty Start Date End Date Zeny Benitez NP [address] [facility] [address] [place] [address] PCP - General Family Medicine 02/20/25 Chace Hsieh MD [address] [place] [address] Consulting Physician Cardiology 11/15/24
--- OUTSIDE RECORDS SUMMARY | 2025-04-15 12:21 | XMS_ITS | Clinical Summary ---
Author Organization [facility] [address] [facility] [address] Address [address] [place] [address] Care Team Providers Care Nuclear Medicine Pet Ct Technologist Name Role Phone Chace Hsieh MD Unavailable [phone] Zeny Bneitez NP Primary Care Provider [phone] Allergies Active Allergy Reactions Criticality Noted Date Comments Penicillins Rash Medium 03/22/2024 Medications vit E-C-chfitn-zin c-lutein 226-90-0.8-5 mg capsule Take by mouth [...] 11/15/2024 Assessment & Plan (11/15/2024 2:33 PM LONG HAUL TRUCK DRIVER): BMI Follow-up includes: nutrition counseling. Encounter for routine adult physical exam with abnormal findings 05/10/2024 Assessment & Plan (11/15/2024 2:49 PM LONG HAUL TRUCK DRIVER): -Recommended: Healthy diet. Avoiding junk food/fast food. [...] scan today and this was ordered at [facility] Hyperlipidemia LDL goal <70 03/22/2024 Assessment & Plan (11/15/2024 2:49 PM LONG HAUL TRUCK DRIVER): Doing well on atorvastatin. Repeat lipid panel [...] also is under the care of cardiology [facility] emphysema 03/22/2024 Assessment & Plan (11/15/2024 2:50 PM LONG HAUL TRUCK DRIVER): Continues on Trelegy. Managed by pulmonology Assessment [...] 07/2024 Assessment & Plan (11/15/2024 2:51 PM LONG HAUL TRUCK DRIVER): Negative biopsy. Being followed by pulmonology Encounters Date Type Department Care Team Description 04/11/2025 2:30 PM CDT Office Visit [facility] Primary Care at [address] [phone] Zeny Benitez NP Chronic wound (Primary Dx) 03/27/2025 2:30 PM CDT Office Visit [facility] Primary Care at [address] [phone] Zeny Benitez NP Abscess of muscle of thigh (Primary Dx); Open wound 03/13/2025 11:30 AM CDT Clinical Support [facility] Primary Care at [address] [phone] 03/07/2025 Telephone [facility] Primary Care at [address] [phone] Zeny Benitez NP Medical Question/Miscellaneo us 02/25/2025 11:30 AM CDT Clinical Support [facility] Primary Care at [address] [address] 02/18/2025 11:30 AM CDT Office Visit [facility] Primary Care at [address] [address] Zeny Benitez NP Infected sebaceous cyst (Primary Dx); Open wound 02/15/2025 11:30 AM CDT Clinical Support [facility] Primary Care at [address] [address] Infected sebaceous cyst (Primary Dx) 02/13/2025 11:30 AM CDT Clinical Support [facility] Primary Care at [address] [address] 02/11/2025 11:30 AM CDT Clinical Support [facility] Primary Care at [address] [address] 02/07/2025 11:30 AM CDT Clinical Support [facility] Primary Care at [address] [address] 02/05/2025 11:30 AM CDT Office Visit [facility] Primary Care at [address] [address] Zeny Benitez NP Infected sebaceous cyst (Primary Dx) 02/01/2025 1:00 PM CDT Clinical Support [facility] Primary Care at [address] [address] 01/30/2025 12:30 PM CDT Office Visit [facility] Primary Care at [address] [address] Zeny Benitez NP Infected sebaceous cyst (Primary Dx) 01/25/2025 Telephone [facility] Primary Care at [address] [address] Zeny Benitez NP Med Refill from Last 3 Months Immunizations Immunization Administration [...] on file Legal Sex Female 5:28 PM LONG HAUL TRUCK DRIVER Gender Identity Not on file Sexual Orientation [...] 04/11/2025 2:24 PM CDT Plan of Treatment Health Maintenance Due Date Last Done Comments DTaP/Tdap/Td Vaccine (1 - Tdap) 1956 Hepatitis B Screening 1961 Zoster Vaccine (1 of 2) 1993 Covid-19 Vaccine (2023-2 5 season) 2025 11/09/2024, 08/19/2022, 01/19/2022, Additional history exists Fall Risk Assessment 05/10/2025 05/10/2024 Influenza Vaccine (#1) 2025 11/09/2024, 2021 Well Visit 65+ 11/15/2025 11/15/2024 Depression Screening 04/11/2026 04/11/2025, 03/27/2025, 01/30/2025, Additional history exists Osteoporosis Screening-Bone Density Scan 01/03/2027 01/03/2025 Pneumococcal vaccine 65+ Completed 05/10/2024 Procedures Procedure Name Priority Date/Time Associated Diagnosis [...] procedure and assisted in drainage. Zeny Benitez CNC MACHINIST 2ND SHIFT IN CLINIC/BEDSIDE ORDERABLES Final Result * Dexa Axial Forearm Bone Density Scan (01/03/2025 2:54 PM CDT) Anatomical Region Laterality Modality Wrist, Body N/A Radiographic Elizabeth ging Zeny Benitez CNC MACHINIST 2ND SHIFT IMG DXA PROCEDURES Final Resu lt from Last 3 Months or Most Recently Relevant to Health Maintenance Insurance AET MEDICARE Care Teams Nuclear Medicine Pet Ct Technologist Relationship Specialty Start Date End Date Zeny Benitez NP [address] [place] [address] PCP - General Family Medicine 02/20/25 Chace Hsieh MD [address] [place] [address] Consulting Physician Cardiology 11/15/24
--- OUTSIDE RECORDS SUMMARY | 2025-04-15 12:21 | XMS_ITS | Clinical Summary ---
Author Organization [facility] Facility Address [address] [place] [address] Care Team Providers Care Project Management Manager Name Role Phone Zeny Benitez APPAREL MANUFACTURE INSTRUCTOR Primary Care Provider [phone] Allergies Active Allergy Reactions Criticality Noted Date Comments Penicillins Rash Medium 03/22/2024 Encounters Date Type Department Care Team Description 03/05/2025 2:30 PM CDT Office Visit [facility] [address] [facility] [address] [place] [phone] Richard Ulloa DO Stage 3 chronic kidney disease, not otherwise specified (HCC) (Primary Dx); Dilated cardiomyopathy (HCC); Longstanding persistent atrial fibrillation (HCC); Chronic bronchitis, not otherwise specified (HCC); Hypertensive chronic kidney disease; Pure hypercholesterolemia, not otherwise specified from Last 3 Months Social History Tobacco Use Types Packs/Day Years Used Date Smoking Tobacco: Never Assessed Comments Unknown Sex and Gender Information Value Date Recorded Sex Assigned at Not on file Legal Sex Female 1:59 PM EDT Gender Identity Not on file Sexual Orientation Not on file Last Filed Vital Signs Vital Sign Reading Time Taken Comments Blood Pressure 114/70 03/05/2025 3:03 PM CDT Pulse 121 03/05/2025 3:03 PM CDT Temperature - - Respiratory Rate 20 03/05/2025 3:03 PM CDT Oxygen Saturation 93% 03/05/2025 3:03 PM CDT Inhaled Oxygen Concentration - - Weight 97.1 kg (214 lb) 03/05/2025 3:03 PM CDT Height 172.7 cm (5' 8) 03/05/2025 3:03 PM CDT Body Mass Index 32.54 03/05/2025 3:03 PM CDT Plan of Treatment Upcoming Encounters Date Type Department Care Team (Late st Contact Info) Description 06/11/2025 1:45 PM CDT Office Visit [facility] [address] [place] [address] Richard Ulloa DO [address] [facility] [address] [place] [address] Health Maintenance Due Date Last Done Comments Pneumococcal Vaccine: 50+ Ye ars (1 of 2 - PCV) 1962 Influenza Vaccine (#1) 2025 11/09/2024 Hepatitis B Vaccine Aged Out No longe r eligible based on patient's age to complete this topic Insurance [employer] MCR Adv PPO ([id number]) Care Teams Project Management Manager Relationship Specialty Start Date End Date Zeny Benitez FNP [address] [place] [id number] PCP - General Nurse Practitioner 11/22/24
--- OUTSIDE RECORDS SUMMARY | 2025-04-15 12:21 | XMS_ITS | Encounter Summary ---
Author Organization [facility] Healthcare Address [address] [place] [address] Care Team Providers Care Collections Agent Name Role Phone Zeny Benitez NP Primary Care Provider Chace Hsieh MD Unavailable Zeny Benitez NP Primary Care Provider [phone] Encounter Details Date Type Department Care Team (Late st Contact Info) Description 05/04/2024 Orders Only [facility] Information Management [address] [place] [id number] Scanning, Provider Social History Tobacco Use Types Packs/Day Years Used Date Smoking Tobacco: Former Cigarettes 0.5 41.1 S tarted: 03/22/1984 Passive Smoke Exposure: Past Smokeless Tobacco: Never Comments Unknown Sex and Gender Information Value Date Recorded Sex Assigned at Not on file Legal Sex Female 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 Gender Identity Not on file Sexual Orientation Not on file documented as of this encounter Plan of Treatment Not on file documented as of this encounter Procedures Procedure Name Priority Date/Time Associated Diagnosis Comments PULMONARY - RESULT SCAN 05/04/2024 documented in this encounter Results * PULMONARY - RESULT SCAN (05/04/2024) Anatomical Region Laterality Modality Other us Provider Scanning Edited Result - Final documented in this encounter Visit Diagnoses Not on filedocumented in this encounter Care Teams Collections Agent Relationship Specialty Start Date End Date Zeny Benitez NP PCP - General Family Medicine 03/22/24 02/19/25 Zeny Benitez NP [address] [place] [address] PCP - General Family Medicine 02/20/25 Chace Hsieh MD [address] [place] [address] Consulting Physician Cardiology 11/15/24 documented as of this encounter
== END 2025-04-15 12:18 | disposition home or self-care (01) ==
PROVIDERS: PCP Nurse Practitioner Family; Visit Provider Internal Medicine Nephrology
DX: I12.9 Hypertensive chronic kidney disease with stage 1 through stage 4 chronic kidney disease, or unspecified chronic kidney disease (principal); N18.30 Chronic kidney disease, stage 3 unspecified; I42.0 Dilated cardiomyopathy; I48.11 Longstanding persistent atrial fibrillation; J42 Unspecified chronic bronchitis; E78.00 Pure hypercholesterolemia, unspecified
CPT/HCPCS: 76775